=== PATIENT | male | born 1940 | race Hispanic/Latino ===

== ENCOUNTER → 2017-06-28 | Day surgery (SDC) | payer OTHER, MEDICARE ==
[2017-06-26 13:10] LABS: BASOPHILS # (AUTO) 0.1 (0.0-0.1); BASOPHILS % 0.7 % (0.0-1.0); EOSINOPHILS % 0.2 % (0.0-6.0); HEMATOCRIT 49.7 % (38.2-49.6); HEMOGLOBIN 16.8 g/dL (14.0-18.0); LYMPHOCYTES # (AUTO) 0.9 (1.0-3.2); MEAN CORPUSCULAR HEMOGLOBIN 31.6 pg (28-32); MEAN CORPUSCULAR HGB CONC 33.8 g/dL (31-35); MEAN CORPUSCULAR VOLUME 93.4 fL (81-99); MONOCYTES # (AUTO) 0.5 (0.2-0.8); MONOCYTES % 4.4 % (4.4-11.3); NEUTROPHILS # (AUTO) 10.5 (2.1-6.9); NEUTROPHILS % 86.7 % (38.7-80.0); PLATELET COUNT 266 x10e3/uL (140-360); RED BLOOD COUNT 5.32 x10e6/uL (4.3-5.7); RED CELL DISTRIBUTION WIDTH 13.6 % (11.7-14.4)
--- NOTE | 2017-06-26 13:27 | Diagnostic Imaging Report ---
PROCEDURE: X-RAY CHEST, TWO VIEWS COMPARISON: 10/23/2015. INDICATIONS: PREOP - LEFT FOOT SX FINDINGS: The lungs remain well inflated. No focal consolidation, pleural effusion, or pneumothorax. Minimal linear opacity in the lung bases compatible with subsegmental atelectasis. Stable cardiomediastinal contour with tortuosity and atherosclerotic calcification of the aortic arch. Normal heart size. No pulmonary edema. No acute osseous abnormality. Surgical clips project over the upper abdomen on lateral radiograph likely related to prior cholecystectomy. CONCLUSION: Bibasilar subsegmental atelectasis. Otherwise no acute cardiopulmonary abnormality. Dictated by: Art Diaz M.D. on 06/26/2017 at 13:35 Electronically approved by: Art Diaz M.D. on 06/26/2017 at 13:35
[2017-06-26 13:29] LABS: ANION GAP 13.4 mmol/L (8-16); BLOOD UREA NITROGEN 18 mg/dL (7-26); BUN/CREATININE RATIO 20 (6-25); CALCIUM 9.4 mg/dL (8.4-10.2); CARBON DIOXIDE 26 mmol/L (22-29); CHLORIDE 106 mmol/L (98-107); CREATININE, SERUM 0.88 mg/dL (0.72-1.25); EST GLOMERULAR FILTRATION RATE > 60 ML/MIN (60-); GLUCOSE 115 mg/dL (74-118); POTASSIUM 4.4 mmol/L (3.5-5.1); SODIUM 141 mmol/L (136-145)
[~2017-06-28] MED LIST: ARICEPT5 MG PO; ATORVASTATIN CA10 MG PO; BETAMETHASONE DISODIUM PHOS 6 MG/ML VIAL ONE; BUPIVACAINE HCL 0.5% INJ 30 ML VIAL INJ ONE; CEFAZOLIN SOD 1 GM/NS 50ML 50 ML IV ONE; CITALOPRAM HBR20 MG PO; CYANOCOBAL1000 MCG/M IV; DEXAMETHASONE SOD PHOS INJ 4 MG/ML VIAL ONE; DIPHENHYDRAMINE HCL INJ 1 ML ONE; FENTANYL CITRATE/PF 100MCG/2 ML INJ ONE; GABAPENTIN100 MG PO; HYDROCHLOROTHIA25 MG PO; HYDROMORPHONE 2MG/ML INJ ONE; HYDROXYCHLOROQ200 MG PO; LABETALOL HCL 5MG/ML MDV 20 ML ONE; LIDOCAINE HCL 2% LOCAL INJ 5 ML SDV VIAL INJ ONE; LISINOPRIL10 MG PO; MELOXICAM7.5 MG PO; METOPROLOL TART25 MG PO; ONDANSETRON HCL INJ 2 MG/ML VIAL ONE; PANTOPRAZOLE SO40 MG PO; PLAVIX PO; PROBIOTIC & AC1 EACH PO; PROPOFOL IV EMULSION 10 MG/ML 20 ML VIAL ONE; SEVOFLURANE INHAL SOLN 250 ML PEN BTL ONE
--- NOTE | 2017-06-28 10:07 | Diagnostic Imaging Report ---
PROCEDURE:FOOT LEFT AP \T\ LAT TECHNIQUE:AP and lateral views left foot INDICATION:Postoperative evaluation COMPARISON:None. FINDINGS: See conclusion. CONCLUSION: 1. Expected immediate postoperative sequela of great toe bunionectomy and hallux valgus correction. 2. Expected postoperative sequela of K wire fixation of second toe hammertoe correction. 3. No acute abnormality. Dictated by: Cody Phipps M.D. on 06/28/2017 at 10:15 Electronically approved by: Cody Phipps M.D. on 06/28/2017 at 10:15
--- NOTE | 2017-06-28 11:47 | Operative Report ---
DATE OF PROCEDURE: June 28, 2017 PREOPERATIVE DIAGNOSES 1. Painful hallux valgus deformity, left foot. 2. Painful contracted hammertoe, 2nd toe left. 3. Painful plantar fasciitis, left foot #4, #5, and #6. 4. Neuralgia/tarsal tunnel syndrome of tibial nerve, medial plantar nerve, and lateral plantar nerve, left foot. 5. Intraoperative use of fluoroscopy. 6. Trigger point shot of cortisone. 7. Application of posterior splint. ANESTHESIA: General. HEMOSTASIS: Pneumatic thigh tourniquet at 350 mmHg. PROCEDURE IN DETAIL: Patient was taken into the operating room, placed on the operating room table in the supine position. Following induction of general anesthesia by the anesthesiologist, Webril wraps were placed on the patient's left thigh followed by application of left thigh tourniquet. The left lower extremity was then prepped and draped in the usual aseptic manner and the following procedures were then performed: PROCEDURE #1: Nasim bunionectomy with screw fixation, left foot. Attention was directed to the dorsomedial aspect of the 1st MPJ where a 6 cm linear incision was performed. Incision was deepened down to the joint capsule. A longitudinal capsulotomy was then performed, exposing the dorsomedial exostosis to the 1st metatarsal head. Via use of an oscillating saw, dorsomedial exostosis was excised from the operation site in toto. A V-osteotomy was then performed from medial to lateral. Capital fragment was then transpositioned laterally. Upon adequate surgical and anatomical reduction, utilizing proper AO technique, a 2.0 x 16 mm cortical screw in conjunction with a buried 0.045 K-wire was used to achieve stability of the osteotomy site. All redundant bone medially was excised via the use of an oscillating saw and rotating mckayla. PROCEDURE #2: Arthroplasty 2nd toe, left foot. Attention was then directed to the dorsal aspect of the 2nd toe where a 3 cm linear incision was performed. Incision was deepened down to the joint capsule. Transverse capsulotomy was then performed, exposing the head of the proximal phalanx which was noted to be arthritic in conjunction with the base of the middle phalanx of the 2nd toe, left foot. Utilizing an oscillating saw, the head of the proximal phalanx was then excised from the operation site in toto. Toe was still noted to be contracted, so a 0.045 K-wire was introduced up to the metatarsophalangeal joint to achieve proper anatomical reduction. PROCEDURE #3: Endoscopic plantar fasciotomy, left foot. Attention was then directed to the medial aspect of the left heel where a stab incision was performed 2 cm from the plantar aspect and 5 cm from the posterior aspect of the left heel. The incision was then deepened via blunt dissection via a curved hemostat. A lateral stab incision was then performed. A cannula was introduced from medial to lateral. Camera was introduced through the lateral portal and the plantar fascia was then clearly visualized. The medial one-third of the plantar fascia was then resected, that way releasing the contracture of the plantar fascia until muscle was observed dorsal to the plantar fascia. Intraoperative pictures were taken of the above-mentioned procedure. PROCEDURE #4, #5, AND #6: Neurolysis of the tibial nerve, neurolysis medial plantar nerve, and neurolysis lateral plantar nerve. Attention was then directed to the medial aspect of the left talotibial joint where a curvilinear incision was performed posterior to the medial malleolus. Incision was deepened via sharp and blunt dissection, being careful to retract any vital structures and ligating any superficial vessels as necessary. Once the level of the flexor retinaculum was clearly visualized, utilizing meticulous dissection the flexor retinaculum was cut, exposing the tibial nerve. The tibial nerve was then released from its adhesions via blunt dissection. The incision was then carried down to the preeti pedis and the nerve was then carried down to the medial and lateral plantar nerve branches and the medial and lateral plantar nerves were then dissected free from any adhesions via blunt dissection. All areas were then copiously flushed with sterile saline solution and suctioned. PROCEDURE #7: Intraoperative use of fluoroscopy was then used to make sure proper alignment fixation was achieved. Closure was then obtained utilizing 3-0 Vicryl, 4-0 Vicryl, and 4-0 nylon for capsule, subcutaneous tissue, and skin respectively. PROCEDURE #8: Trigger point shot of cortisone was then given to the 1st interspace of the left foot, medial aspect of the left heel, and tarsal canal area of the left lower extremity. Then, approximately 15 mL of 0.5% plain Marcaine were then used to achieve local anesthesia of above mentioned surgical area. A sterile dressing was applied. Upon release of the thigh tourniquet, blood hyperemia was noted immediately to all digits of the patient's left foot. PROCEDURE #9: Application of posterior splint. A properly placed posterior splint was then applied keeping the foot at 90 degrees with respect to the leg to try to prevent any type of postoperative complications. Patient was then transferred from the OR to recovery room with vital signs stable and neurovascular status intact. No intraoperative complications were encountered. Blood loss from the surgery was minimal. Patient is to remain nonweightbearing with the aid of crutches, keep his foot elevated, and is to apply an ice pack to the ankle joint area. Job#: [id number] ANNMARIE
== END | disposition home or self-care (01) ==
LOC: OR 05:59
PROVIDERS: ATTEND Podiatrist Foot Surgery
DX: M20.12 Hallux valgus (acquired), left foot (principal); M20.42 Other hammer toe(s) (acquired), left foot; M72.2 Plantar fascial fibromatosis; G57.52 Tarsal tunnel syndrome, left lower limb; G58.8 Other specified mononeuropathies; I10 Essential (primary) hypertension; I25.10 Atherosclerotic heart disease of native coronary artery without angina pectoris; Z01.810 Encounter for preprocedural cardiovascular examination; Z01.812 Encounter for preprocedural laboratory examination; Z01.818 Encounter for other preprocedural examination; Z95.5 Presence of coronary angioplasty implant and graft
CPT/HCPCS: 28035; 28285; 28296; 29893; 36415; 64704 ×2; 71020; 73620; 80048; 85025; 93005; C1713; J0720; J1100; J1170; J1200; J2001; J2405; J3490

== ENCOUNTER 2019-12-12 17:56 | Inpatient (IN) | payer MEDICARE, OTHER ==
[~2019-12-12] VITALS: Ht 167.6 cm; Wt 76.2 kg
[~2019-12-12 17:56] MED LIST changes: -BETAMETHASONE DISODIUM PHOS 6 MG/ML VIAL ONE; -BUPIVACAINE HCL 0.5% INJ 30 ML VIAL INJ ONE; -CEFAZOLIN SOD 1 GM/NS 50ML 50 ML IV ONE; -DEXAMETHASONE SOD PHOS INJ 4 MG/ML VIAL ONE; -DIPHENHYDRAMINE HCL INJ 1 ML ONE; -FENTANYL CITRATE/PF 100MCG/2 ML INJ ONE; -HYDROMORPHONE 2MG/ML INJ ONE; -LABETALOL HCL 5MG/ML MDV 20 ML ONE; -LIDOCAINE HCL 2% LOCAL INJ 5 ML SDV VIAL INJ ONE; -ONDANSETRON HCL INJ 2 MG/ML VIAL ONE; -PROPOFOL IV EMULSION 10 MG/ML 20 ML VIAL ONE; -SEVOFLURANE INHAL SOLN 250 ML PEN BTL ONE
--- OUTSIDE RECORDS SUMMARY | 2019-12-12 18:01 | XMS REPORT ---
Author Author Iliana NELLA A Organization Unknown Address Unknown Phone Care Team Providers Care Yard Cleaner Name Role Phone Daphney Barrientos PP Reason for Referral No Reason for Referral was given. History of Present Illness No HPI available. Problems * Normal Routine History And Physical Senior Citizen (65-80) (V70.0); ( Active) Medication * Protonix 40 MG Oral Packet (Active) * Plavix 75 MG Oral Tablet (Active) * Lisinopril 10 MG Oral Tablet (Active) * Lipitor 10 MG Oral Tablet (Active) * Meloxicam 15 MG Oral Tablet (Active) * Hydroxychloroquine Sulfate 200 MG Oral Tablet (Active) * Furosemide 20 MG Oral Tablet (Active) * Esgic CAPS (Active) * Famotidine TABS (Active) * Folic Acid TABS (Active) * Multi Vitamin/Minerals Oral Tablet (Active) * MTX Support Oral Tablet; 2.5mg 4 po q Monday (Active) Allergies and Adverse Reactions * No Known Drug Allergies (Active) Past Medical History * History of Hypertension (401.9); (Resolved) * History of Coronary Artery Disease (V12.59); (Resolved) * History of Prostate Cancer (V10.46); (Resolved) * History of Hematuria Comments: microscopic (599.70); (Resolved) * History of Rheumatoid Arthritis (714.0); (Resolved) Immunization * Influenza * PPD * Pneumo Advance Directives * No Advance Directives available. Encounters * AUDIT 04/05/2013 * LEANDRO, Provider: LULU WOOD, Status: Basim, Time: 1:15 PM 04/10/2013
--- OUTSIDE RECORDS SUMMARY | 2019-12-12 18:01 | XMS REPORT ---
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 Active Assessment 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 rheumatoid factor, multiple sites M06.09 Active Assessment Fatigue R53.83 Active Assessment Pain in right shoulder M25.511 Activ e Problem Shoulder pain, left M25.512 Active Problem Osteopenia M85.80 Active Problem Pain in right shoulder M25.511 Activ e Problem 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 Problem 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 rheumatoid factor, multip le sites M06.09 Active Problem Fatigue R53.83 Active Problem Back pain M54.9 Active Medications Medication Code System Code Instructions Start Date End Date Status Dosage Lisinopril ND 37415234501 10 MG Orally Once a day A ctive 1 tablet Protonix ND 22188065639 40 MG Orally Once a day Act viky 1 tablet Cyanocobalamin [facility] [address]-49 1000 MCG/ML Orally once a week Active as directed Metoprolol Tartrate ND 66103534529 25 MG Orally Twice a day Active 1 tablet with food Plavix ND 50400925790 75 MG Orally Once a day Acti ve 1 tablet Pravastatin Sodium ND 18098346780 40 MG Orally Once a day Active 1 tablet Hydroxychloroquine Sulfate ND 44973612822 200 MG Orally bid Active 1 tablet with food or milk PredniSONE ND 35288298837 5 MG Orally Once a day December 25, 2018 Active 1 tablet Hydrochlorothiazide ND 87907855127 25 MG Orally Three times a Week Active 1 tablet in the morning Vitamin D (Ergocalciferol) ND 65131318860 32472 UNIT Orally onc e a week Active 1 capsule Donepezil Hydrochloride [facility] 38696133583 10 MG Orally Once a day Active 1 tablet at bedtime Vital Signs Date/Time: December 25, 2018 BMI 30 Index Weight 171.1 lbs Height 63 in Temperature 98.2 F Cardiac Monitoring Heart Rate 84 /min Blood Pressure Diastolic 62 mm Hg Blood Pressure Systolic 98 mm Hg Results No Known Results Summary Purpose eClinicalWorks Submission
--- OUTSIDE RECORDS SUMMARY | 2019-12-12 18:01 | XMS REPORT ---
Author Author NELLA Luna Organization e[employer] Address Unknown Phone Unavailable Care Team Providers Care Bakery Helper Name Role Phone Kevin Luna CP Unavailable Allergies, Adverse Reactions, Alerts Substance Reaction Event Type Sulfasalazine Info Not Available Drug Allergy Hydroxychloroquine Sulfate worked but too expensive Drug All ergy Problems Problem Type Condition Code Onset Dates Condition Statu s Assessment 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 rheumatoid factor, multiple sites M06.09 Active Problem Other frame aligner (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 Z79.899 Active Assessment Other skilled nursing (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 Z79.899 Active Problem Shoulder pain, left M25.512 Active Problem Osteopenia M85.80 Active Problem Left shoulder pain M25.512 Active Problem 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 Problem 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 rheumatoid factor, multip le sites M06.09 Active Problem Fatigue R53.83 Active Problem Back pain M54.9 Active Medications Medication Code System Code Instructions Start Date End Date Status Dosage Cyanocobalamin [facility] [address]-30 1000 MCG/ML Orally once a week Active as directed Hydrochlorothiazide ND 84429731873 25 MG Orally Three times a Week Active 1 tablet in the morning Lisinopril ND 79202635490 10 MG Orally Once a day A ctive 1 tablet Plavix ND 22496491349 75 MG Orally Once a day Acti ve 1 tablet Metoprolol Tartrate ND 45646695952 25 MG Orally Twice a day Active 1 tablet with food Vitamin D (Ergocalciferol) ND 50977314530 19791 UNIT Orally onc e a week Active 1 capsule Protonix ND 46969357863 40 MG Orally Once a day Act viky 1 tablet Hydroxychloroquine Sulfate ND 57105867283 200 MG Orally bid Active 1 tablet with food or milk PredniSONE ND 04833515535 5 MG Orally Once a day Ac tive 1 tablet Pravastatin Sodium ND 90230845496 40 MG Orally Once a day Active 1 tablet Donepezil Hydrochloride [facility] 89292355584 10 MG Orally Once a day Active 1 tablet at bedtime Vital Signs Date/Time: September 24, 2018 BMI 29.99 Index Weight 169.3 lbs Height 63 in Temperature 97.9 F Cardiac Monitoring Heart Rate 80 /min Blood Pressure Diastolic 78 mm Hg Blood Pressure Systolic 118 mm Hg Results No Known Results Summary Purpose eClinicalWorks Submission
--- OUTSIDE RECORDS SUMMARY | 2019-12-12 18:01 | XMS REPORT | Summary of Care ---
Author Author [facility] Address Unknown Phone Unavailable Encounter HQ Encntr_marrymary([facility]) [id number] Date(s): 12/02/16 - 12/31/16 [facility] Final: Limitation of activities due to disability Final: Stiffness of unspecified joint, not elsewhere classified Discharge Disposition: Home or Self Care Attending Physician: Ismael Munoz MD Vital Signs No data available for this section Problem List No data available for this section Allergies, Adverse Reactions, Alerts No data available for this section Medications No data available for this section Results No data available for this section Immunizations No data available for this section Procedures No data available for this section Social History No data available for this section Assessment and Plan No data available for this section
--- OUTSIDE RECORDS SUMMARY | 2019-12-12 18:01 | XMS REPORT | Summary of Care ---
Author Author [facility] Outpatient Imaging - [facility] Organization [facility] Outpatient Imaging [facility] Address Unknown Phone Unavailable Encounter HQ Encntr_alias(FIN) [id number] Date(s): 08/06/19 - 08/06/19 [facility] Outpatient Imaging [facility] [address] [facility], [address] [place], [place] [address] [phone] Discharge Disposition: Home or Self Care Attending Physician: Ismael Munoz MD Referring Physician: Ismael Munoz MD Vital Signs No [...]
--- OUTSIDE RECORDS SUMMARY | 2019-12-12 18:01 | XMS REPORT ---
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
--- OUTSIDE RECORDS SUMMARY | 2019-12-12 18:01 | XMS REPORT ---
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 Active Assessment Left shoulder pain M25.512 Active Problem Shoulder pain, left M25.512 Active Problem Osteopenia M85.80 Active Problem Left shoulder pain M25.512 Active Problem 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 Problem 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 rheumatoid factor, multip le sites M06.09 Active Problem Fatigue R53.83 Active Problem Back pain M54.9 Active Medications Medication Code System Code Instructions Start Date End Date Status Dosage Donepezil Hydrochloride ND 23831607824 10 MG Orally Once a day Active 1 tablet at bedtime Hydrochlorothiazide ND 42801831849 25 MG Orally Three times a Week Active 1 tablet in the morning Protonix ND 89767594863 40 MG Orally Once a day Act viky 1 tablet PredniSONE ND 18317371264 5 MG Orally q0d x 4wks and t hen 1 tab prn Jun 05, 2018 Active 1 tablet Vitamin D (Ergocalciferol) ND 93499367166 37922 UNIT Orally onc e a week Active 1 capsule Cyanocobalamin [facility] [address]-96 1000 MCG/ML Orally once a week Active as directed Plavix ND 47281051826 75 MG Orally Once a day Acti ve 1 tablet Lisinopril ND 48926663675 10 MG Orally Once a day A ctive 1 tablet Hydroxychloroquine Sulfate ND 51855872670 200 MG Orally bid N 2017September 21, 2018 Active 1 tablet with food or milk Pravastatin Sodium ND 15749959843 40 MG Orally Once a day Active 1 tablet Metoprolol Tartrate [facility] 64285355656 25 MG Orally Twice a day Active 1 tablet with food Vital Signs Date/Time: Jun 08, 2018 BMI 30.59 Index Weight 172.7 lbs Height 63 in Temperature 97.6 F Cardiac Monitoring Heart Rate 70 /min Blood Pressure Diastolic 68 mm Hg Blood Pressure Systolic 122 mm Hg Results No Known Results Summary Purpose eClinicalWorks Submission
--- OUTSIDE RECORDS SUMMARY | 2019-12-12 18:01 | XMS REPORT | Summary of Care ---
Author Author [facility] Outpatient Imaging - [facility] Outpatient Imaging - [facility] Address Unknown Phone Unavailable Encounter HQ Encntr_alias(FIN) [id number] Date(s): 02/27/15 - 02/27/15 [facility] Outpatient Imaging - [place] [address] [facility], [address] [phone] Discharge Disposition: Home Attending Physician: Ismael Munoz MD Vital Signs [...]
--- OUTSIDE RECORDS SUMMARY | 2019-12-12 18:01 | XMS REPORT ---
Author Author NELLA Pro Organization eClinicalWorks Address Unknown Phone Unavailable Care Team Providers Care Remelt Pan Tank Operator Name Role Phone Watson Pro CP Unavailable Allergies, Adverse Reactions, Alerts Substance Reaction Event Type Sulfasalazine Info Not Available Drug Allergy Hydroxychloroquine Sulfate worked but too expensive Drug All ergy Problems Problem Type Condition Code Onset Dates Condition Statu s Problem 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 rheumatoid factor, multip le sites M06.09 Active Problem Other [facility] (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 Z79.899 Active Problem Pain in right shoulder M25.511 Activ e Problem Shoulder pain, left M25.512 Active Problem Low vitamin D level E55.9 Active Problem Back pain M54.9 Active Problem 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 Problem Osteopenia M85.80 Active Problem Fatigue R53.83 Active Assessment 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 Assessment Low vitamin D level E55.9 Active Assessment Pain in right shoulder M25.511 Activ e Assessment Osteopenia M85.80 Active Assessment 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 rheumatoid factor, multiple sites M06.09 Active Medications Medication Code System Code Instructions Start Date End Date Status Dosage Pravastatin Sodium ND 39943257355 40 MG Orally Once a day Active 1 tablet Protonix ND 99492441570 40 MG Orally Once a day Act viky 1 tablet Plavix ND 64708318878 75 MG Orally Once a day Acti ve 1 tablet Hydrochlorothiazide ND 49320448606 25 MG Orally Three times a Week Active 1 tablet in the morning Metoprolol Tartrate ND 46625781811 25 MG Orally Twice a day Active 1 tablet with food Hydroxychloroquine Sulfate ND 35233180063 200 MG Orally bid Active 1 tablet with food or milk PredniSONE ND 18979915893 5 MG Orally Once a day December 25, 2018 Active 1 tablet Lisinopril ND 93739358099 10 MG Orally Once a day A ctive 1 tablet Donepezil Hydrochloride ND 97842103531 10 MG Orally Once a day Active 1 tablet at bedtime Vital Signs Date/Time: Mar 29, 2019 BMI 30.61 Index Weight 172.8 lbs Height 63 in Temperature 98.0 F Cardiac Monitoring Heart Rate 68 /min Blood Pressure Diastolic 60 mm Hg Blood Pressure Systolic 108 mm Hg Results Name Result Date Reference Range Unit Abnormali ty Flag CBC W/AUTO DIFF ----MONOCYTES 5.9 [id number] 4.0-13.0 % ----LYMPHOCYTES 12.5 [id number] 19.0-48.0 % L ----HEMOGLOBIN 17.0 [id number] 13.0-17.0 G/DL ----HEMATOCRIT 50.8 12359503 37.0-49.0 % H ----MCV 92.7 04727715 80.0-100.0 fL ----MCH 31.0 [id number] 27.0-34.0 PG ----MCHC 33.5 [id number] 32.0-35.5 G/DL ----PLATELET COUNT 283 90020050 130-400 K/UL ----RDW 13.9 [id number] 11.0-15.0 % ----BASOPHILS 0.7 77222088 0.0-2.0 % ----WBC 12.5 [id number] 4.0-11.0 K/UL H ----NEUTROPHILS 79.9 52546134 40.0-74.0 % H ----RBC 5.48 [id number] 4.10-5.70 M/UL ----EOSINOPHILS 1.0 55196725 0.0-7.0 % C-REACTIVE PROTEIN ----C-REACTIVE PROTEIN <0.1 [id number] <0.5 MG/DL COMPREHENSIVE METABOLIC PANEL ----CALC A/G RATIO 2.0 [id number] 1.0-2.6 RATIO ----CALC GLOBULIN 2.4 12418739 1.9-3.7 G/DL ----ALKALINE PHOSPHATASE 61 43105550 40-125 U/L ----BILIRUBIN, TOTAL 0.6 65354681 <=1.2 MG/DL ----CHLORIDE 100 [id number] 95-107 MEQ/L ----ALT 17 59772611 5-50 U/L ----POTASSIUM 4.2 88477031 3.5-5.4 MEQ/L ----AST 18 20190329 9-50 U/L ----SODIUM 141 20190329 133-146 MEQ/L ----CALC BUN/CREAT 16 20190329 6-28 RATIO ---- eGFR NON- AMER. 73 [id number] >60 ML/MIN/1 .73 ----CALCIUM 10.1 [id number] 8.5-10.5 MG/DL ----CARBON DIOXIDE 28 20190329 19-31 MEQ/L ----ALBUMIN 4.7 20190329 3.5-5.2 G/DL ----PROTEIN, TOTAL 7.1 20190329 6.1-8.3 G/DL ----GLUCOSE 101 20190329 70-99 MG/DL H ----BUN 16 20190329 8-23 MG/DL ----CREATININE 0.98 20190329 0.80-1.40 MG/DL ---- eGFR AMER. 84 [id number] >60 ML/MIN/1.73 SEDIMENTATION RATE ----SEDIMENTATION RATE 8 [id number] 0-15 MM/HOUR VITAMIN D, 25 OH ----VITAMIN D, 25 OH 25 [id number] SEE BELOW NG/ML L Summary Purpose eClinicalWorks Submission
--- OUTSIDE RECORDS SUMMARY | 2019-12-12 18:01 | XMS REPORT ---
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 Active Problem Abnormal electrocardiogram R94.31 A ctive Problem Arteriosclerosis of both carotid arteries I65.23 Active Problem Nonrheumatic mitral (valve) insufficiency I34.0 Active Problem 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 Problem LVH (left ventricular hypertrophy) due to hypertensive disease I11.9 Active Problem Essential hypertension I10 Activ e Problem Abnormal stress test R94.39 Active Assessment Essential hypertension I10 Activ e Problem Stented coronary artery Z95.5 Acti ve Problem Former smoker Z87.891 Active Problem Pure hypercholesterolemia E78.01 Ac tive Problem CAD (coronary artery disease) I25.10 Active Problem 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
--- OUTSIDE RECORDS SUMMARY | 2019-12-12 18:01 | XMS REPORT ---
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
--- OUTSIDE RECORDS SUMMARY | 2019-12-12 18:01 | XMS REPORT | Summary of Care ---
Author Author [facility] Outpatient Imaging - [facility] Outpatient Imaging - [facility] Address Unknown Phone Unavailable Encounter HQ Encntr_alias(FIN) [id number] Date(s): 09/07/15 - 09/07/15 [facility] Outpatient Imaging - [place] [address] [facility], [address] [phone] Discharge Disposition: Home Attending Physician: Ismael Munoz [...]
--- OUTSIDE RECORDS SUMMARY | 2019-12-12 18:01 | XMS REPORT ---
Author Author NELLA Luna Organization [employer] Address Unknown Phone Unavailable Care Team Providers Care Junior Marketing Associate Name Role Phone Kevin Luna CP Unavailable Allergies, Adverse Reactions, Alerts Substance Reaction Event Type Sulfasalazine Info Not Available Drug Allergy Hydroxychloroquine Sulfate worked but too expensive Drug All ergy Problems Problem Type Condition Code Onset Dates Condition Statu s Assessment Shoulder pain, left M25.512 Active Assessment 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 rheumatoid factor, multiple sites M06.09 Active Problem Osteopenia M85.80 Active Problem Fatigue R53.83 Active Problem Shoulder pain, left M25.512 Active Problem 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 rheumatoid factor, multip le sites M06.09 Active Problem 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 service 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 (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 Z79.899 Active Problem Back pain M54.9 Active Problem 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 Medications Medication Code System Code Instructions Start Date End Date Status Dosage Cyanocobalamin [facility] [address]-54 1000 MCG/ML Orally once a week Active as directed Plavix ND 61504405964 75 MG Orally Once a day Acti ve 1 tablet Protonix ND 12541242008 40 MG Orally Once a day Act viky 1 tablet Donepezil Hydrochloride ND 05291018170 10 MG Orally Once a day Active 1 tablet at bedtime Lisinopril ND 93423106872 10 MG Orally Once a day A ctive 1 tablet Metoprolol Tartrate ND 29507117809 25 MG Orally Twice a day Active 1 tablet with food Hydrochlorothiazide ND 21251149790 25 MG Orally Three times a Week Active 1 tablet in the morning Vitamin D (Ergocalciferol) ND 04391136842 67884 UNIT Orally onc e a week Active 1 capsule PredniSONE ND 72480444351 5 MG Orally Once a day Ac tive 1 tablet Hydroxychloroquine Sulfate ND 06237359647 200 MG Orally bid Active 1 tablet with food or milk Pravastatin Sodium ND 12991270334 40 MG Orally Once a day Active 1 tablet Vital Signs Date/Time: Feb 12, 2018 BMI 30.64 Index Weight 173 lbs Height 63 in Temperature 96.3 F Cardiac Monitoring Heart Rate 64 /min Blood Pressure Diastolic 82 mm Hg Blood Pressure Systolic 130 mm Hg Results No Known Results Summary Purpose eClinicalWorks Submission
--- OUTSIDE RECORDS SUMMARY | 2019-12-12 18:01 | XMS REPORT ---
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
--- OUTSIDE RECORDS SUMMARY | 2019-12-12 18:01 | XMS REPORT ---
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
--- OUTSIDE RECORDS SUMMARY | 2019-12-12 18:01 | XMS REPORT ---
Author Author NELLA Pro Organization [employer] Address Unknown Phone Unavailable Care Team Providers Care Label Printing Machinist Name Role Phone Watson Pro CP Unavailable Allergies No Known Allergies Problems Problem Type Condition Code Onset Dates Condition Statu s Problem Other rodent exterminator (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 Z79.899 Active Problem Shoulder [...]
--- OUTSIDE RECORDS SUMMARY | 2019-12-12 18:01 | XMS REPORT ---
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
--- OUTSIDE RECORDS SUMMARY | 2019-12-12 18:01 | XMS REPORT ---
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 Problem 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 rheumatoid factor, multip le sites M06.09 Active Problem Low vitamin D level E55.9 Active Problem Pain in right shoulder M25.511 Activ e Problem Rotator cuff tear, right M75.101 Act viky Problem Fatigue R53.83 Active Problem Back pain M54.9 Active Problem Shoulder pain, left M25.512 Active Problem Osteopenia M85.80 Active Assessment Pain in right shoulder M25.511 Activ e Assessment 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 (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 Z79.899 Active Assessment 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 Assessment 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 rheumatoid factor, multiple sites M06.09 Active Assessment Rotator cuff tear, right M75.101 Act viky Medications Medication Code System Code Instructions Start Date End Date Status Dosage Hydrochlorothiazide ND 61341408613 25 MG Orally Three times a Week Active 1 tablet in the morning Plavix ND 99462043218 75 MG Orally Once a day Acti ve 1 tablet Hydroxychloroquine Sulfate ND 11031374454 200 MG Orally bid Active 1 tablet with food or milk Metoprolol Tartrate ND 39399406526 25 MG Orally Twice a day Active 1 tablet with food Protonix ND 76368727195 40 MG Orally Once a day Act viky 1 tablet PredniSONE ND 82459725295 5 MG Orally Once a day December 25, 2018 Active 1 tablet Pravastatin Sodium ND 29202726247 40 MG Orally Once a day Active 1 tablet Lisinopril ND 04610175942 10 MG Orally Once a day A ctive 1 tablet Donepezil Hydrochloride ND 12843902108 10 MG Orally Once a day Active 1 tablet at bedtime Vital Signs Date/Time: May 16, 2019 BMI 30.20 Index Weight 170.5 lbs Height 63 in Temperature 98 F Cardiac Monitoring Heart Rate 76 /min Blood Pressure Diastolic 74 mm Hg Blood Pressure Systolic 112 mm Hg Results No Known Results Summary Purpose eClinicalWorks Submission
--- OUTSIDE RECORDS SUMMARY | 2019-12-12 18:01 | XMS REPORT ---
Author Author NELLA Pro Organization [employer] Address Unknown Phone Unavailable Care Team Providers Care Projection Printer Name Role Phone Watson Pro CP Unavailable Allergies No Known Allergies Problems Problem Type Condition Code Onset Dates Condition Statu s Problem Other intermission coordinator (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 Z79.899 Active Problem Shoulder [...]
--- OUTSIDE RECORDS SUMMARY | 2019-12-12 18:01 | XMS REPORT ---
Author Author NELLA Pro Organization [employer]Works Address Unknown Phone Unavailable Care Team Providers Care Radiation Oncology Nurse Name Role Phone Watson Pro CP Unavailable Allergies No Known Allergies Problems Problem Type Condition Code Onset Dates Condition Statu s Problem Other oil heaterman (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 Z79.899 Active Problem Shoulder [...]
--- OUTSIDE RECORDS SUMMARY | 2019-12-12 18:01 | XMS REPORT ---
Author Author NELLA Pro Organization eClinicalWorks Address Unknown Phone Unavailable Care Team Providers Care Sailing Master Name Role Phone Watson Pro CP Unavailable Allergies No Known Allergies Problems Problem Type Condition Code Onset Dates Condition Statu s Problem Other parts counterman (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 Z79.899 Active Problem Shoulder [...]
--- OUTSIDE RECORDS SUMMARY | 2019-12-12 18:01 | XMS REPORT ---
Author Author NELLA Luna Organization eClinicalWorks Address Unknown Phone Unavailable Care Team Providers Care Bulk Plant Supervisor Name Role Phone Kevin Luna CP Unavailable Allergies, Adverse Reactions, Alerts Substance Reaction Event Type Sulfasalazine Info Not Available Drug Allergy Hydroxychloroquine Sulfate worked but too expensive Drug All ergy Problems Problem Type Condition Code Onset Dates Condition Statu s Assessment 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 rheumatoid factor, multiple sites M06.09 Active Problem Other terminal superintendent (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 Z79.899 Active Assessment Shoulder pain, left M25.512 Active Problem Shoulder pain, left M25.512 Active Problem Osteopenia M85.80 Active Problem Left shoulder pain M25.512 Active Problem 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 Problem 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 rheumatoid factor, multip le sites M06.09 Active Problem Fatigue R53.83 Active Problem Back pain M54.9 Active Medications Medication Code System Code Instructions Start Date End Date Status Dosage Metoprolol Tartrate ND 64106350768 25 MG Orally Twice a day Active 1 tablet with food Pravastatin Sodium ND 71996458111 40 MG Orally Once a day Active 1 tablet Plavix ND 78436697384 75 MG Orally Once a day Acti ve 1 tablet Lisinopril ND 03435588580 10 MG Orally Once a day A ctive 1 tablet Hydrochlorothiazide ND 15957721172 25 MG Orally Three times a Week Active 1 tablet in the morning Cyanocobalamin [facility] [address]-68 1000 MCG/ML Orally once a week Active as directed Vitamin D (Ergocalciferol) ND 04272137550 93735 UNIT Orally onc e a week Active 1 capsule Donepezil Hydrochloride ND 99104358377 10 MG Orally Once a day Active 1 tablet at bedtime Protonix ND 33695884049 40 MG Orally Once a day Act viky 1 tablet PredniSONE ND 40544388123 5 MG Orally Once a day Ac tive 1 tablet Hydroxychloroquine Sulfate ND 30118960153 200 MG Orally bid Active 1 tablet with food or milk Vital Signs Date/Time: Jun 26, 2018 BMI 31 Index Weight 174.3 lbs Height 63 in Temperature 96.1 F Cardiac Monitoring Heart Rate 64 /min Blood Pressure Diastolic 86 mm Hg Blood Pressure Systolic 132 mm Hg Results No Known Results Summary Purpose eClinicalWorks Submission
--- OUTSIDE RECORDS SUMMARY | 2019-12-12 18:01 | XMS REPORT ---
Author Author NELLA WOOD Organization Unknown Address Unknown Phone Care Team Providers Care Aquatic Life Laborer Name Role Phone LULU WOOD PP Unavailable Reason for Referral No Reason for Referral was given. History of Present Illness No HPI available. Problems * Normal Routine History And Physical Senior Citizen (65-80) (V70.0); ( Active) * Alzheimer Disease (331.0); (Active) * Coronary Artery Stenosis (414.00); (Active) * Essential Hypertension (401.9); (Active) * Prostate Cancer (185); (Active) * Rheumatoid Arthritis (714.0); (Active) Medication * Plavix 75 MG Oral Tablet; TAKE 1 TABLET DAILY. (Active) * Lisinopril 10 MG Oral Tablet; TAKE 1 TABLET DAILY. (Active) * Lipitor 10 MG Oral Tablet; TAKE 1 TABLET DAILY. (Active) * Meloxicam 15 MG Oral Tablet; TAKE 1 TABLET DAILY. (Active) * Hydroxychloroquine Sulfate 200 MG Oral Tablet; TAKE 1 TABLET DAILY. (Active) * MTX Support Oral Tablet; 2.5mg 4 po q Monday (Active) * Protonix 40 MG Oral Tablet Delayed Release; TAKE 1 TABLET DAILY. (Active) * Furosemide 20 MG Oral Tablet; TAKE 1 TABLET DAILY. (Active) Allergies and Adverse Reactions * No Known Drug Allergies (Active) Past Medical History * History of Hypertension (401.9); (Resolved) * History of Coronary Artery Disease (V12.59); (Resolved) * History of Prostate Cancer (V10.46); (Resolved) * History of Hematuria Comments: microscopic (599.70); (Resolved) * History of Rheumatoid Arthritis (714.0); (Resolved) Immunization * Influenza * PPD * Pneumo Family History * Paternal history of Lung Cancer (V16.1); (Active) * Maternal history of Alzheimer Disease (Active) Social History * Marital History - Currently (Active) * Never A Smoker (Active) Advance Directives * No Advance Directives available. Encounters * AUDIT 08/07/2013 * [facility], Provider: LULU WOOD, Status: Basim, Time: 1:15 PM 12/03/2013
--- OUTSIDE RECORDS SUMMARY | 2019-12-12 18:01 | XMS REPORT ---
Author Author NELLA Luna Organization eClinicalWorks Address Unknown Phone Unavailable Care Team Providers Care Heeler Machine Name Role Phone Kevin Luna CP Unavailable Allergies, Adverse Reactions, Alerts Substance Reaction Event Type Sulfasalazine Info Not Available Drug Allergy Hydroxychloroquine Sulfate worked but too expensive Drug All ergy Problems Problem Type Condition Code Onset Dates Condition Statu s Assessment Other tank terminal gauger (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 Z79.899 Active Problem Fatigue R53.83 Active Problem Back pain M54.9 Active Problem Osteopenia M85.80 Active Problem Other skilled nursing (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 Z79.899 Active Assessment 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 rheumatoid factor, multiple sites M06.09 Active Problem 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 Problem 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 rheumatoid factor, multip le sites M06.09 Active Medications Medication Code System Code Instructions Start Date End Date Status Dosage Cyanocobalamin [facility] [address]-43 1000 MCG/ML Orally once a week Active as directed Leflunomide ND 95610011170 20 MG Orally Once a day Active 1 tablet Hydroxychloroquine Sulfate ND 06718630089 200 MG Orally bid Feb 07, 2018 Active 1 tablet with food or milk Lisinopril ND 26055760352 10 MG Orally Once a day A ctive 1 tablet Pravastatin Sodium ND 43887269119 40 MG Orally Once a day Active 1 tablet Donepezil Hydrochloride ND 18325836967 10 MG Orally Once a day Active 1 tablet at bedtime Hydrochlorothiazide ND 94801668512 25 MG Orally Three times a Week Active 1 tablet in the morning Protonix ND 91385676361 40 MG Orally Once a day Act viky 1 tablet PredniSONE ND 21837104321 5 MG Orally Once a day Ac tive 1 tablet Plavix ND 58660880955 75 MG Orally Once a day Acti ve 1 tablet Metoprolol Tartrate ND 83036064084 25 MG Orally Twice a day Active 1 tablet with food Vitamin D (Ergocalciferol) [facility] 55648436916 86160 UNIT Orally onc e a week Active 1 capsule Vital Signs Date/Time: Feb 07, 2018 BMI 30.61 Index Weight 175.6 lbs Height 63.5 in Temperature 98.1 F Cardiac Monitoring Heart Rate 72 /min Blood Pressure Diastolic 80 mm Hg Blood Pressure Systolic 142 mm Hg Results No Known Results Summary Purpose eClinicalWorks Submission
--- OUTSIDE RECORDS SUMMARY | 2019-12-12 18:01 | XMS REPORT ---
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
--- OUTSIDE RECORDS SUMMARY | 2019-12-12 18:01 | XMS REPORT ---
Author Author NELLA Pro Organization eClinicalWorks Address Unknown Phone Unavailable Care Team Providers Care Chemical Technician Name Role Phone Watson Pro CP Unavailable Allergies No Known Allergies Problems Problem Type Condition Code Onset Dates Condition Statu s Problem Other oysterman (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 Z79.899 Active Problem Shoulder [...]
--- OUTSIDE RECORDS SUMMARY | 2019-12-12 18:01 | XMS REPORT | Continuity of Care Document ---
Author Author Ewa Sung [employer] NELLA Muhammad [employer] Address Unknown Phone Unavailable Care Team Providers Care Mapping Analyst Name Role Phone [employer] Unavailable Un available Problems Problem Status Onset Date Classification Date Reported Comments Source LBP W/SCIATICA Active 11/17/2016 [facility] [place] M79.671 - PAIN IN RIGHT FOOT A ctive 09/04/2015 [employer] 562.11 - DIVERTICULITIS Active 02/25/2015 [employer] Limitation of activities due to disability 01/03/2017 [facility] [place] Stiffness of unspecified joint, not else where classified 01/03/2017 [facility] [place] Osteopenia Active Problem 08/22/2019 [facility] Fatigue Active Problem 08/22/2019 [facility] Shoulder pain, left Active Problem 08/22/2019 Esteban Hardiner 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 rheumatoid factor, multiple sites Active Prob lien 08/22/2019 [facility] 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 [facility] Back pain Active Problem 08/22/2019 Esteban Hardiner Inflammatory osteoarthritis Ac tive Problem Esteban Hardiner Left shoulder pain Active Problem 09/27/2018 [facility] Low vitamin D level Active Problem 08/22/2019 [facility] Pain in right shoulder Active Problem 08/22/2019 Esteban Hardiner Rotator cuff tear, right Active Problem 08/22/2019 Esteb[facility] Hardiner Leg edema, left Active Problem 03/27/2019 Aranza Nicholas Right arm numbness Active Problem 03/27/2019 Aranza Nicholas Exertional dyspnea Active Problem 03/27/2019 Aranza Nicholas Encounter for pre-operative cardiovascular clearance Active Problem 03/27/2019 Aranza Nicholas 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 Problem 03/27/2019 Aranza Nicholas Abnormal electrocardiogram Act viky Problem Aranza Nicholas Arteriosclerosis of both carotid arteries Active Problem 03/27/2019 rAanza Nicholas Nonrheumatic mitral (valve) insufficiency Active Problem 03/27/2019 Aranza Nicholas Nonrheumatic tricuspid valve disorder Active Problem Aranza Nicholas LVH (left ventricular hypertrophy) due t o hypertensive disease Active Prob lien 03/27/2019 Aranza Nicholas Essential hypertension Active Problem 03/27/2019 Aranza Nicholas Abnormal stress test Active Problem 03/27/2019 Aranza Nicholas Stented coronary artery Active Problem 03/27/2019 Aranza Nicholas Former smoker Active Problem 03/27/2019 Aranza Nicholas Pure hypercholesterolemia Acti ve Problem Aranza Nicholas CAD (coronary artery disease) Active Problem Aranza Nicholas 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 Active Problem 03/27/2019 Aranza Nicholas Shortness of breath Active Problem 03/27/2019 Aranza Nicholas Alzheimer Disease Active 08/07/2013 [facility] Coronary Artery Stenosis Active 08/07/2013 [facility] Essential Hypertension Active 08/07/2013 [facility] Prostate Cancer Active 08/07/2013 [facility] Rheumatoid Arthritis Active 08/07/2013 [facility] LUMBAGO WITH SCIATICA, RIGHT SIDE Active [facility] [place] LOW BACK PAIN Active [facility] [place] MUSCLE WEAKNESS (GENERALIZED) Active [facility] [place] LIMITATION OF ACTIVITIES DUE TO DISABILI Active [facility] [place] STIFFNESS OF UNSPECIFIED JOINT, NOT ELSE Active [facility] [place] Medications Medication Details Route Status Patient Instructions Ordering Provider Order Date Source PredniSONE 1 tablet Orally Active 5 MG Orally Once a day Pro 12/25/2018 [facility] PredniSONE 1 tablet Orally Active 5 MG Orally q0d x 4wks and then 1 tab prn Cheryl 06/05/2018 [facility] Hydroxychloroquine Sulfate 1 t ablet with food or milk Orally Active 200 MG Orally bid Cheryl 05/24/2018 [facility] PredniSONE 1 tablet Orally Active 5 MG Orally Once a day Cheryl 05/24/2018 [facility] Hydroxychloroquine Sulfate 1 t ablet with food or milk Orally Active 200 MG Orally bid Cheryl 02/07/2018 [facility] Hydrochlorothiazide 1 tablet Orally Active 25 Orally Once a day Cristopher Nicholas Cyanocobalamin as directed Orally Active 1000 MCG/ML Orally once a week [place] [facility] Leflunomide 1 tablet Orally Active 20 [facility] tablet Orally Active 10 MG Orally Once a day [facility] Pro Pravastatin Sodium 1 tablet Orally Active 40 MG Orally Once a day Pro [facility] Donepezil Hydrochloride 1 tabl et at bedtime Orally Active 10 MG Orally Once a day [place] [facility] Hydrochlorothiazide 1 tablet i n the morning Orally Active 25 MG Orally Three times a Week [place] [facility] Protonix 1 tablet Orally Active 40 MG Orally Once a day [facility] Pro PredniSONE 1 tablet Orally Active 5 MG Orally Once a day [facility] Pro Plavix 1 tablet Orally Active 75 MG Orally Once a day [facility] Pro Metoprolol Tartrate 1 tablet w ith food Orally Active 25 MG Orally Twice a day [place] [facility] Vitamin D (Ergocalciferol) 1 c apsule Orally Active 57050 UNIT Orally once a week [place] Esteban Hardiner Hydroxychloroquine Sulfate 1 t ablet with food or milk Orally Active 200 MG Orally bid [facility] Esteban Hardiner Hydroxychloroquine Sulfate 1 t ablet with food or milk Orally Active 200 MG Orally bid [place] Esteban Hardiner Protonix 40 MG Oral Packet (A ctive) Active [facility] Plavix 75 MG Oral Tablet (Act viky) Active [facility] Lisinopril 10 MG Oral Tablet (Active) Active [facility] Lipitor 10 MG Oral Tablet (Ac tive) Active [facility] Meloxicam 15 MG Oral Tablet ( Active) Active [facility] Hydroxychloroquine Sulfate 200 MG Oral Tablet (Active) Active [facility] Furosemide 20 MG Oral Tablet (Active) Active [facility] Esgic CAPS (Active) Active [facility] Famotidine TABS (Active) Active [facility] Folic Acid TABS (Active) Active [facility] Multi Vitamin/Minerals Oral Tablet (Active) Active [facility] MTX Support Oral Tablet (Acti ve) Active [facility] Protonix 40 MG Oral Tablet Delayed Release (Active) Active [facility] Allergies, Adverse Reactions, Alerts Substance Category Reaction Severity Reaction type Status Date Reported Comments Source Hydroxychloroquine Sulfate Adv erse Reaction worked but too expensive Adverse Reaction Active 03/29/2019 [facility] Sulfasalazine Adverse Reaction Info Not Available Adverse Reaction Active 05/16/2019 [facility] No Known Drug Allergies drug a llergy drug aller gy Active [facility] Immunizations Immunization Date Given Site Status Last Updated Comments Source Influenza completed [facility] PPD completed [facility] Pneumo completed [facility] Results No Data Provided for This Section Pathology Reports No Data Provided for This Section Diagnostic Reports Report Value Date Source Renal Stone CT Radiation Dose CTDIVOL = 0 (mGy): DLP = 517.25 (mGy-cm) Not described above, there is mild periureteric stranding on the left. Differential considerations include UTI, or sequela of recent stone passage. Correlate clinically. James Lynne MD On 12/12/2019 14:02:57; [id number] Radiation Dose CTDIVOL = 0 (mGy): DLP = 517.25 (mGy-cm) PROCEDURE INFORMATION: Exam: CT Abdomen And Pelvis Without Contrast Exam date and time: 12/12/2019 1:07 PM Age: 79 years old Clinical indication: Hematuria, unspecified; Additional info: /r31.9 hematuria, unspecified TECHNIQUE: Imaging protocol: Computed tomography of the abdomen and pelvis without contrast. Radiation optimization: All CT scans at this facility use at least one of these dose optimization techniques: automated exposure control; mA and/or kV adjustment per patient size (includes targeted exams where dose is matched to clinical indication); or iterative reconstruction. COMPARISON: PELVIS LIMITED 02/27/2015 11:18 AM RADIATION DOSE METRICS: Total DLP: 517.25 mGy-cm FINDINGS: Lungs: Mild bilateral lower lobe dependent subsegmental atelectasis. Liver: Normal. No mass. Gallbladder and bile ducts: Cholecystectomy. No pathologic bile duct dilatation. Pancreas: Normal. No ductal dilation. Spleen: Normal. No splenomegaly. Adrenals: Normal. No mass. Kidneys and ureters: extrarenal pelvis left kidney is anatomic variant. No hydronephrosis otherwise. No obstructing calculus or lesion seen. 3 mm calcification within the midpole the left kidney is most likely vascular calcification. 1 mm calcification within the left renal lower pole could be vascular or calyceal nonobstructing calculus. No suspicious solid renal mass lesions appreciated. Stomach and bowel: Colonic diverticulosis without inflammation. Appendix: No evidence of appendicitis. Intraperitoneal space: Unremarkable. No free air. No significant fluid collection. Vasculature: Unremarkable. No abdominal aortic aneurysm. Lymph nodes: Unremarkable. No enlarged lymph nodes. Bladder: Nondistended but thick-walled urinary bladder. Correlate clinically for cystitis. Reproductive: Unremarkable as visualized. Bones/joints: Unremarkable. No acute fracture. Soft tissues: Unremarkable. IMPRESSION: Nondistended but thick-walled urinary bladder. Correlate clinically for cystitis. No urinary tract obstruction or obstructing calculi appreciated. 3 mm left renal calcification, likely va scular. 1 mm lower pole left renal calculus is indeterminate for vascular versus nonobstructing renal calculus. No solid renal lesions appreciated. Cholecystectomy without pathologic bile duct dilatation. Colonic diverticulosis without inflammation. 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 History of cholecystectomy. ADDITIONAL INFORMATION: None. COMPARISON: 02/27/2015. TECHNIQUE: Multiplanar grayscale and color Doppler ultrasound images of the abdomen. FINDINGS: Liver: Craniocaudal length: 17.7 cm. Enlarged. Echogenicity: Heterogeneously diffusely increased. Some mild geographic areas of normal echogenicity liver are present. Surface nodularity: None Mass (size and location): None. Portal vein: 11 mm with hepatopetal flow. Bile ducts: Common bile duct diameter: 5 mm. Normal. Intrahepatic ducts: Normal. Gallbladder: Surgically absent Pancreas: No abnormalities of the visualized portions of the pancreas are demonstrated. Portions of the pancreas are obscured by overlying bowel gas. Spleen: Craniocaudal length: 9.6 cm. Normal. Mass or focal lesion (size and location): None. Right kidney: Size: 11.5 x 4.8 x 5.1 cm. Normal. Hydronephrosis: None. Echogenicity: Normal. Mass/Stone/Cyst (size and location): None. Left kidney: Size: 11.6 x 5.1 x 5.0 cm. Normal. Hydronephrosis: None. Echogenicity: Normal. Mass/Stone/Cyst (size and location): None. Abdominal aorta and IVC: Visualized portions are normal. Ascites: None Pleural Effusions: None IMPRESSION: 1. Nonspecific hepatomegaly and increase d liver echogenicity, findings most compatible with diffuse fatty infiltration (steatosis) of the liver. Some areas of heterogeneous normal echogenicity liver likely represent areas of focal fatty sparing. No discrete liver mass is seen. 2. Status post cholecystectomy. 08/06/2019 [facility] Foot 2 views bilateral DX EXAM : X-RAY BILATERAL FEET 2 VIEWS DATE: 09/07/2015 9:32 AM CAREER DEVELOPMENT COUNSELOR INDICATION: Right foot heel pain. Dorsal and posterior midfoot pain of the left foot. No history of trauma. Symptoms have been present for 2 months. COMPARISON: None TECHNIQUE: AP, lateral views FINDINGS: Hallux valgus is present bilaterally, right-sided greater than left. There is associated mild asymmetric joint space narrowing and osteophyte formation at the 1st metatarsophalangeal joints bilaterally. Mild osteoarthritic changes are seen at the distal interphalangeal joint of the right 2nd toe with associated osteophyte formation and joint space narrowing. No fractures or osseous destructive lesions are seen. Atherosclerotic calcifications are seen in the bilateral ankles and feet. IMPRESSION: 1. Bilateral hallux valgus with mild carolyn ateral 1st metatarsophalangeal joint osteoarthritis. 2. Mild osteoarthritis of the distal int erphalangeal joint of the right 2nd toe 3. Atherosclerotic vascular disease of t he bilateral ankles and feet. 09/07/2015 [facility] Pelvis Limited US EXAM: US ABD OMEN EXAM: US PELVIS TRANSABDOMINAL LIMITED DATE: 02/27/2015 COMPARISON EXAMS: Liver ultrasound of 07/30/2012 CLINICAL INDICATION: Abdominal pain and pelvic cramping.. DATA: None TECHNIQUE: Multiple transverse and longitudinal images through the abdomen were obtained sonographically with additional supplemental color flow imaging. Permanent images were recorded.Multiple transverse and longitudinal images through the pelvis were obtained transabdominally with additional supplemental color flow imaging. Permanent images were recorded. DISCUSSION: The liver is of normal size and echogenicity with no focal abnormalities. No intra or extrahepatic biliary ductal dilatation is seen with the common bile duct measuring 4.7 in diameter along its visualized course. The gallbladder is sonographically within normal limits with no wall thickening, pericholecystic fluid, gallstones, or sonographic Seals's sign. The spleen is normal in appearance measuring 9.7 cm in length. Both kidneys are of normal size and echogenicity with no hydronephrosis, masses, or calculi with the right kidney measuring 10.8 cm in length and with the left kidney measuring 11.8 cm in length. No abnormalities of the abdominal aorta or inferior vena cava are demonstrated. Hepatopetal flow is seen in the main portal vein which measures 11 mm in diameter. A portion of the pancreatic tail is obscured by overlying bowel gas. No abnormalities of the visualized portions of the pancreas are seen. The urinary bladder is normal in appearance with no wall thickening, masses, or calculi. Prevoid bladder volume is estimated to be 33 cc. Post void bladder volume is estimated to be 5 cc. Bilateral ureteral jets are seen under color flow imaging confirming ureteral patency. The prostate gland is grossly normal in appearance measuring 2.8 x 2.2 x 2.3 cm No free fluid is seen in the pelvis. IMPRESSION: No sonographic abnormalities of the abdomen and pelvis are demonstrated. If symptoms persist or worsen, CT scanning with contrast of the abdomen and pelvis should be considered. 02/27/2015 [facility] Abdomen complete US EXAM: US A BDOMEN EXAM: US PELVIS TRANSABDOMINAL LIMITED DATE: 02/27/2015 COMPARISON EXAMS: Liver ultrasound of 07/30/2012 CLINICAL INDICATION: Abdominal pain and pelvic cramping.. DATA: None TECHNIQUE: Multiple transverse and longitudinal images through the abdomen were obtained sonographically with additional supplemental color flow imaging. Permanent images were recorded.Multiple transverse and longitudinal images through the pelvis were obtained transabdominally with additional supplemental color flow imaging. Permanent images were recorded. DISCUSSION: The liver is of normal size and echogenicity with no focal abnormalities. No intra or extrahepatic biliary ductal dilatation is seen with the common bile duct measuring 4.7 in diameter along its visualized course. The gallbladder is sonographically within normal limits with no wall thickening, pericholecystic fluid, gallstones, or sonographic Seals's sign. The spleen is normal in appearance measuring 9.7 cm in length. Both kidneys are of normal size and echogenicity with no hydronephrosis, masses, or calculi with the right kidney measuring 10.8 cm in length and with the left kidney measuring 11.8 cm in length. No abnormalities of the abdominal aorta or inferior vena cava are demonstrated. Hepatopetal flow is seen in the main portal vein which measures 11 mm in diameter. A portion of the pancreatic tail is obscured by overlying bowel gas. No abnormalities of the visualized portions of the pancreas are seen. The urinary bladder is normal in appearance with no wall thickening, masses, or calculi. Prevoid bladder volume is estimated to be 33 cc. Post void bladder volume is estimated to be 5 cc. Bilateral ureteral jets are seen under color flow imaging confirming ureteral patency. The prostate gland is grossly normal in appearance measuring 2.8 x 2.2 x 2.3 cm No free fluid is seen in the pelvis. IMPRESSION: No sonographic abnormalities of the abdomen and pelvis are demonstrated. If symptoms persist or worsen, CT scanning with contrast of the abdomen and pelvis should be considered. 02/27/2015 [facility] Consultation Notes No Data Provided for This Section Discharge Summaries No Data Provided for This Section History and Physicals No Data Provided for This Section Vital Signs Vital Sign Value Date Comments Source Weight 170.5 05/16/2019 [facility] Height 63 1 07/16/2018 [facility] Temperature Oral (F) 98 F 05/16/2019 [facility] Heart Rate 76 05/16/2019 [facility] Diastolic (mm Hg) 74 05/16/2019 [facility] Systolic (mm Hg) 112 05/16/2019 [facility] Weight 172.8 03/29/2019 [facility] Height 63 0 03/29/2019 [facility] Temperature Oral (F) 98.0 F 03/29/2019 [facility] Heart Rate 68 03/29/2019 [facility] Diastolic (mm Hg) 60 03/29/2019 [facility] Systolic (mm Hg) 108 03/29/2019 [facility] Weight 171.1 12/25/2018 [facility] Height 63 0 12/25/2018 [facility] Temperature Oral (F) 98.2 F 12/25/2018 [facility] Heart Rate 84 12/25/2018 [facility] Diastolic (mm Hg) 62 12/25/2018 [facility] Systolic (mm Hg) 98 12/25/2018 [facility] Weight 169.3 09/24/2018 [facility] Height 63 0 09/24/2018 [facility] Temperature Oral (F) 97.9 F 09/24/2018 [facility] Heart Rate 80 09/24/2018 [facility] Diastolic (mm Hg) 78 09/24/2018 [facility] Systolic (mm Hg) 118 09/24/2018 [facility] Weight 174.3 06/26/2018 [facility] Height 63 1 08/27/2017 [facility] Temperature Oral (F) 96.1 F 06/26/2018 [facility] Heart Rate 64 06/26/2018 [facility] Diastolic (mm Hg) 86 06/26/2018 [facility] Systolic (mm Hg) 132 06/26/2018 [facility] Weight 172.7 06/08/2018 [facility] Height 63 1 08/08/2017 [facility] Temperature Oral (F) 97.6 F 06/08/2018 [facility] Heart Rate 70 06/08/2018 [facility] Diastolic (mm Hg) 68 06/08/2018 [facility] Systolic (mm Hg) 122 06/08/2018 [facility] Weight 173 02/12/2018 [facility] Height 63 0 02/12/2018 [facility] Temperature Oral (F) 96.3 F 02/12/2018 [facility] Heart Rate 64 02/12/2018 [facility] Diastolic (mm Hg) 82 02/12/2018 [facility] Systolic (mm Hg) 130 02/12/2018 [facility] Weight 175.6 02/07/2018 [facility] Height 63.5 02/07/2018 [facility] Temperature Oral (F) 98.1 F 02/07/2018 [facility] Heart Rate 72 02/07/2018 [facility] Diastolic (mm Hg) 80 02/07/2018 [facility] Systolic (mm Hg) 142 02/07/2018 [facility] Encounters Location Location Details Encounter Type Encounter Number Reason For Visit Attending Provider ADM Date DC Date Status Source AUDIT [id number] 04/05/2013 04/05/2013 [facility] Adolph REEVES zoya: LULU MUNOZ, Status: Pen, Time: 1:15 PM [id number] 04/10/20 13 04/05/2013 [facility] AUDIT [id number] 08/07/2013 08/07/2013 [facility] Adolph REEVES zoya: LULU MUNOZ, Status: Basim, Time: 1:15 PM [id number] 12/04/19 14 08/07/2013 [facility] [place] [facility] [id number] Lulu Munoz 02/27/2015 02/28/2015 [facility] [place] [facility] [id number] Lulu Munoz 09/07/2015 09/08/2015 [facility] [place] [facility] [id number] Lulu Munoz 12/02/2016 01/01/2017 [facility] [place] [facility] [place] [facility] [id number] 06 Lulu Munoz 08/06/2019 08/07/2019 [facility] [place] Procedures No Data Provided for This Section Assessment and Plan No Data Provided for This Section Plan of Care No Data Provided for This Section Social History Social History Date Source No data available for this section 08/07/2019 [facility] [place] No data available for this section 01/01/2017 [facility] Aguirre Marital History - Currently (Active) Never A Smoker (Active) 08/07/2013 [facility] Family History Value Date S ource Paternal history of Lung Cancer (V16.1); (Active) Maternal history of Alzheimer Disease (Active) 08/07/2013 [facility] Advance Directives Order Name Results Value Date Source Advance Directives Advance Dir ectives No Advance Directives available. 08/07/2013 [facility] Advance Directives Advance Dir ectives No Advance Directives available. 04/05/2013 [facility] Functional Status No Data Provided for This Section
--- OUTSIDE RECORDS SUMMARY | 2019-12-12 18:02 | XMS REPORT | Continuity of Care Document ---
Author Author [facility] t Organization [facility] Address [address] [place] [address] Phone Unavailable Care Team Providers Care Primary Grade Teacher Name Role Phone Suleiman Munoz Attphys LUTHER OLIVIA Attphys Unavailable Problems Condition Name Condition Details Condition Category Status Onset Date Resolution Date Last Treatment Date Treating Clinician Comments Source LBP W/SCIATICA LBP W/SCIATICA Active 11/17/2016 [facility] Diagnosis Active 2016-11-17 12:53:00 2016-12-20 11:39:00 Ewa Almaraz M79.671 - PAIN IN RIGHT FOOT M 79.671 - PAIN IN RIGHT FOOT Active 09/04/2015 [facility] Diagnosis Active 2015-09-04 00:0 1:00 2015-09-07 09:27:00 [facility] 562.11 - DIVERTICULITIS 562. 11 - DIVERTICULITIS Active 02/25/2015 [facility] Diagnosis Active 2015-02-25 00:01:00 2015-03-05 05:49:00 Ewa Almaraz Limitation of activities due to disability Limitation of activities due to disability 01/03/2017 [facility] Problem 2017-01-03 00:04:58 [facility] Stiffness of unspecified joint, not elsewhere classifi ed Stiffness of unspecified joint, not elsewhere classified 01/03/2017 [facility] Problem 2017-01-03 00:04:58 [facility] Osteopenia Oste openia Active Problem 08/22/2019 Esteban Pro Problem Active 2019-08-22 03:47:50 [facility] [place] Fatigue Fati jayda Active Problem 08/22/2019 Esteban Pro Problem Active 2019-08-22 03:47:50 [facility] Shoulder pain, left Shou lder pain, left Active Problem 08/22/2019 Esteban Pro Problem Active 2019-08-22 03:47:50 [facility] [place] 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 rheumatoid factor, multip le sites 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 rheumatoid factor, multiple sites Active Problem 08/22/2019 Esteban Pro Problem Active 2019-08-22 03:47:50 [facility] Other shelter (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 Active Problem 08/22/2019 Esteban Pro Problem Ac tive 2019-08-22 03:47:50 Ewa frank Back pain Back pain Active Problem 08/22/2019 Esteban Pro Problem Active 2019-08-22 03:47:50 [facility] [place] 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 Active Problem 08/22/2019 Esteban Pro Problem Active 2019-08-22 03:47:50 [facility] Low vitamin D level Low vitamin D level Active Problem 08/22/2019 Esteban Pro Problem Active 2019-08-22 03:47:50 [facility] Pain in right shoulder Pain in right shoulder Active Problem 08/22/2019 Esteban Pro Problem Active 2019-08-22 03 :47:50 [facility] Rotator cuff tear, right Rota tor cuff tear, right Active Problem 08/22/2019 Estebanloyda Pro Problem Active 2019-08-22 03 :47:50 [facility] Leg edema, left Leg edema, left Active Problem 03/27/2019 Aranza Recinoscristofer Problem Active 2019-03-27 02:45:00 [facility] Right arm numbness Righ t arm numbness Active Problem 03/27/2019 Aranza O Jorjecristofer Problem Active 2019-03-27 02:45:00 [facility] Exertional dyspnea Exer tional dyspnea Active Problem 03/27/2019 Lissethamed O Cristopher Problem Active 2019-03-27 02:45:00 [facility] Encounter for pre-operative cardiovascular clearance Encounter for pre-operative cardiovascular clearance Active Problem 03/27/2019 Lissethamed [place] Jorjecristofer Problem Active 2019-03-27 02:45:00 [facility] 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 Active Problem 03/27/2019 Aranza [place] Nicholas Problem A ctive 2019-03-27 02:45:00 Ewa frank Abnormal electrocardiogram Abn ormal electrocardiogram Active Problem 03/27/2019 Mohamed O Cristopher Problem Active 2019-03-27 02:45:00 [facility] Arteriosclerosis of both carotid arteries Arteriosclerosis of both carotid arteries Active Problem 03/27/2019 Aranza Nicholas Problem Active 2019-03-27 02:45:00 [facility] Nonrheumatic mitral (valve) insufficiency Nonrheumatic mitral (valve) insufficiency Active Problem 03/27/2019 Aranza Nicholas Problem Active 2019-03-27 02:45:00 [facility] 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 Active Problem 03/27/2019 Aranza Nicholas Problem Active 2019-03-27 02:45:00 [facility] LVH (left ventricular hypertrophy) due to hypertensive disease LVH (left ventricular hypertrophy) due to hypertensive disease Active Problem 03/27/2019 Aranza Nicholas Problem Active 2019-03-27 02:45:0 0 [facility] Essential hypertension Esse ntial hypertension Active Problem 03/27/2019 Aranza Nicholas Problem Active 28-03-18 02:45:00 [facility] Abnormal stress test Abno rmal stress test Active Problem 03/27/2019 Aranza Nicholas Problem Active 2019-03-27 02:45:00 [facility] Stented coronary artery Sten yamile coronary artery Active Problem 03/27/2019 Aranza Nicholas Problem Active 28-03-18 02:45:00 [facility] Former smoker Form er smoker Active Problem 03/27/2019 Aranza Nicholas Problem Active 2019-03-27 02:45:00 [facility] Pure hypercholesterolemia Pure hypercholesterolemia Active Problem 03/27/2019 Aranza Nicholas Problem Active 28-03-18 02:45:00 [facility] CAD (coronary artery disease) CAD (coronary artery disease) Active Problem 03/27/2019 Aranza Nicholas Problem Active 2019-03-27 02:45:00 [facility] Atherosclerosis of [place] arteries of extremity with i ntermittent claudication Atherosclerosis of [place] arteries of extremity with intermittent claudication Active Problem 03/27/2019 Aranza Nicholas Problem Active 2019-03-27 02:45:00 [facility] [place] Shortness of breath Shor tness of breath Active Problem 03/27/2019 Aranza Nicholas Problem Active 2019-03-27 02:45:00 [facility] Alzheimer Disease Alzh eimer Disease Active 08/07/2013 [facility] Problem Active 2013-08-07 19:51:41 M amy Almaraz Coronary Artery Stenosis Olamide nary Artery Stenosis Active 08/07/2013 [facility] Problem Active 2013-08-07 19:51: 41 [facility] Essential Hypertension Esse ntial Hypertension Active 08/07/2013 [facility] Problem Active 2013-08-07 19:51:41 [facility] Prostate Cancer Pros santiago Cancer Active 08/07/2013 [facility] Problem Active 2013-08-07 19:51:41 M amy Almaraz Rheumatoid Arthritis Rheu matoid Arthritis Active 08/07/2013 [facility] Problem Active 2013-08-07 19:51:41 [facility] LUMBAGO WITH SCIATICA, RIGHT SIDE LUMBAGO WITH SCIATICA, RIGHT SIDE Active [facility] Diagnosis Active 2016 11:39:00 [facility] LOW BACK PAIN LOW BACK PAIN Active [facility] Diagnosis Active 2016-12-20 11:39:00 Ct paddy Almaraz MUSCLE WEAKNESS (GENERALIZED) MUSCLE WEAKNESS (GENERALIZED) Active [facility] Diagnosis Active 201 01-12-13 11:39:00 [facility] LIMITATION OF ACTIVITIES DUE TO DISABILI LIMITATION OF ACTIVITIES DUE TO DISABILI Active [facility] Diagnosis Active 2016-12-20 11:39:00 [facility] STIFFNESS OF UNSPECIFIED JOINT, NOT ELSE STIFFNESS OF UNSPECIFIED JOINT, NOT ELSE Active [facility] Diagnosis Active 2016-12-20 11:39:00 [facility] Allergies, Adverse Reactions, Alerts Allergy Name Allergy Type Status Severity Reaction(s) Onset Date Inacti ve Date Treating Clinician Comments Source Sulfasalazine Sulfasalazine Active Info Not Available 7 00:00:00 [facility] Hydroxychloroquine Sulfate Hydroxychloroquine Sulfate Active worked but too expensive 2019-03-29 00:00:00 [facility] No Known Drug Allergies No Known Drug Allergies Active [facility] Social History Social Habit Start Date Stop Date Quantity Comments Source Social History 2013-08-07 19:51:41 2013-08-07 19:51:41 [facility] Medications Ordered Medication Name Filled Medication Name Start Date Stop Da te Current Medication? Ordering Clinician Indication Dosage Frequency Signature (SIG) Comments Components Source Lisinopril 2019-05-18 03:45:39 Yes Watson Pro 1 tablet [facility] Pravastatin Sodium 2019-05-18 03:45:39 Yes Watson Hardiner 1 tablet [facility] Donepezil Hydrochloride 2019-05-18 03:45:39 Yes Watson Lloyd aller 1 tablet at bedtime [facility] Hydrochlorothiazide 2019-05-18 03:45:39 Yes Watson Hardine r 1 tablet in the morning [facility] Protonix 2019-05-18 03:45:39 Yes Watson Hardiner 1 tablet [facility] Plavix 2019-05-18 03:45:39 Yes Watson Hardiner 1 ta blet [facility] Metoprolol Tartrate 2019-05-18 03:45:39 Yes Watson Coronado r 1 tablet with food [facility] Hydroxychloroquine Sulfate 2019-05-18 03:45:39 Yes Tracy Hardiner 1 tablet with food or milk [facility] n Hydrochlorothiazide 2019-03-27 02:45:00 Yes Aranza Jorjeoudi 1 tablet [facility] Cyanocobalamin 2018-12-27 02:45:49 Yes Watson Pro as directed [facility] Vitamin D (Ergocalciferol) 2018-12-27 02:45:49 Yes Tracy Hardiner 1 capsule [facility] PredniSONE 2018-12-25 00:00:00 Yes Watson Hardiner 1 tablet [facility] PredniSONE 2018-09-27 02:46:41 Yes Wajeeha Cheryl 1 tablet [facility] Hydroxychloroquine Sulfate 2018-09-27 02:46:41 Yes Wajee briscoe Cheryl 1 tablet with food or milk [facility] PredniSONE 2018-06-05 00:00:00 Yes Wajeeha Cheryl 1 tablet [facility] Hydroxychloroquine Sulfate 2018-05-24 00:00:00 Yes Wajee briscoe Cheryl 1 tablet with food or milk [facility] PredniSONE 2018-05-24 00:00:00 Yes Wajeeha Cheryl 1 tablet [facility] Leflunomide 2018-02-09 02:49:15 Yes Wajeeha Cheryl 1 tablet [facility] Hydroxychloroquine Sulfate 2018-02-07 00:00:00 Yes Wajee briscoe Cheryl 1 tablet with food or milk [facility] n Plavix 75 MG Oral Tablet 2013-08-07 19:51:41 Yes (Active) [facility] Lisinopril 10 MG Oral Tablet 2013-08-07 19:51:41 Yes (Active) Ewa Almaraz Lipitor 10 MG Oral Tablet 2013-08-07 19:51:41 Yes (Active) Ewa Almaraz Meloxicam 15 MG Oral Tablet 2013-08-07 19:51:41 Yes (Active) Ewa Almaraz Hydroxychloroquine Sulfate 200 MG Oral Tablet 2013-08-07 19:51:4 1 Yes (Active) Ewa Almaraz Furosemide 20 MG Oral Tablet 2013-08-07 19:51:41 Yes (Active) Ewa Almaraz MTX Support Oral Tablet 2013-08-07 19:51:41 Yes (Active) Ewa Almaraz Protonix 40 MG Oral Tablet Delayed Release 2013-08-07 19:51:41 Yes (Active) Ewa Almaraz Protonix 40 MG Oral Packet 2013-04-05 12:45:33 Yes (Active) Ewa Almaraz Esgic CAPS 2013-04-05 12:45:33 Yes (Active) Ewa Almaraz Famotidine TABS 2013-04-05 12:45:33 Yes (Ac tive) [facility] Folic Acid TABS 2013-04-05 12:45:33 Yes (Ac tive) Ewa Almaraz Multi Vitamin/Minerals Oral Tablet 2013-04-05 12:45:33 Yes (Active) Ewa Almaraz Vital Signs Vital Name Observation Time Observation Value Comments Source Weight 2019-05-16 15:30:00 [facility] [place] Height 2019-05-16 15:30:00 [facility] [place] Temperature Oral (F) 2019-05-16 15:30:00 98 F [facility] [place] Heart Rate 2019-05-16 15:30:00 [facility] [place] Diastolic (mm Hg) 2019-05-16 15:30:00 [facility] Systolic (mm Hg) 2019-05-16 15:30:00 [facility] Weight 2019-03-29 15:45:00 [facility] Height 2019-03-29 15:45:00 [facility] [place] Temperature Oral (F) 2019-03-29 15:45:00 98.0 F [facility] Heart Rate 2019-03-29 15:45:00 [facility] [place] Diastolic (mm Hg) 2019-03-29 15:45:00 [facility] [place] Systolic (mm Hg) 2019-03-29 15:45:00 [facility] Weight 2018-12-25 14:45:00 [facility] Height 2018-12-25 14:45:00 [facility] Temperature Oral (F) 2018-12-25 14:45:00 98.2 F [facility] [place] Heart Rate 2018-12-25 14:45:00 [facility] [place] Diastolic (mm Hg) 2018-12-25 14:45:00 [facility] [place] Systolic (mm Hg) 2018-12-25 14:45:00 Jw aditya Sung Weight 2018-09-24 14:00:00 [facility] Height 2018-09-24 14:00:00 [facility] Temperature Oral (F) 2018-09-24 14:00:00 97.9 F [facility] [place] Heart Rate 2018-09-24 14:00:00 [facility] Diastolic (mm Hg) 2018-09-24 14:00:00 [facility] Systolic (mm Hg) 2018-09-24 14:00:00 Jw burgess [place] Weight 2018-06-26 14:30:00 [facility] [place] Height 2018-06-26 14:30:00 [facility] [place] Temperature Oral (F) 2018-06-26 14:30:00 96.1 F [facility] Heart Rate 2018-06-26 14:30:00 [facility] [place] Diastolic (mm Hg) 2018-06-26 14:30:00 [facility] [place] Systolic (mm Hg) 2018-06-26 14:30:00 Jw burgess [facility] Weight 2018-06-08 15:15:00 [facility] [place] Height 2018-06-08 15:15:00 [facility] [place] Temperature Oral (F) 2018-06-08 15:15:00 97.6 F [facility] [place] Heart Rate 2018-06-08 15:15:00 [facility] [place] Diastolic (mm Hg) 2018-06-08 15:15:00 [facility] [place] Systolic (mm Hg) 2018-06-08 15:15:00 Jw burgess [place] Weight 2018-02-12 15:45:00 [facility] [place] Height 2018-02-12 15:45:00 [facility] [place] Temperature Oral (F) 2018-02-12 15:45:00 96.3 F [facility] [place] Heart Rate 2018-02-12 15:45:00 [facility] [place] Diastolic (mm Hg) 2018-02-12 15:45:00 [facility] [place] Systolic (mm Hg) 2018-02-12 15:45:00 Jw [facility] Weight 2018-02-07 13:15:00 [facility] Height 2018-02-07 13:15:00 [facility] [place] Temperature Oral (F) 2018-02-07 13:15:00 98.1 F [facility] Heart Rate 2018-02-07 13:15:00 [facility] [place] Diastolic (mm Hg) 2018-02-07 13:15:00 [facility] Systolic (mm Hg) 2018-02-07 13:15:00 Jw [facility] [place] Procedures This patient has no known procedures. Encounters Start Date/Time End Date/Time Encounter Type Admission Type [facility] Care Department Encounter ID Source 2019-08-21 12:47:00 2019-08-21 12:47:00 Outpatient MD BART Pacheco MD [place] [id number] Esteban Pro MD 2019-08-06 10:36:00 2019-08-06 23:59:00 Outpatient Christopher Munoz MHOIB MHOIB [id number] 2019-05-16 09:30:00 2019-05-16 09:30:00 Outpatient Watson ARRIAGA [id number] Esteban Pro MD 2019-03-29 10:45:00 2019-03-29 10:45:00 Outpatient Watson Pro MD PA [id number] Esteban Pro MD 2019-03-25 16:34:00 2019-03-25 16:34:00 Outpatient Aranza Nicholas MD [place] [id number] [employer] 2018-12-25 09:45:00 2018-12-25 09:45:00 Outpatient Watson ARRIAGA [id number] VITALIY Pro MD 2018-12-24 15:11:00 2018-12-24 15:11:00 Outpatient Watson Pro MD PA [id number] VITALIY Pro MD 2018-12-24 08:12:00 2018-12-24 08:12:00 Outpatient Watson Pro MD PA [id number] Esteban Pro MD 2018-09-24 09:46:00 2018-09-24 09:46:00 Outpatient Watson Pro MD PA [id number] Esteban Pro MD 2018-09-24 09:00:00 2018-09-24 09:00:00 Outpatient Watson Pro MD PA [id number] Esteban Pro MD 2018-06-26 08:30:00 2018-06-26 08:30:00 Outpatient Watson ARRIAGA [id number] Esteban Pro MD 2018-06-25 10:16:00 2018-06-25 10:16:00 Outpatient Watson Pro MD PA [id number] Esteban Pro MD 2018-06-22 10:48:00 2018-06-22 10:48:00 Outpatient Watson Pro MD PA [id number] Esteban Pro MD 2018-06-08 10:05:00 2018-06-08 10:05:00 Outpatient Watson Pro MD PA [id number] Estbean Pro MD 2018-06-08 09:15:00 2018-06-08 09:15:00 Outpatient Watson ARRIAGA [id number] Esteban Pro MD 2018-06-07 14:26:00 2018-06-07 14:26:00 Outpatient Watson Pro MD PA [id number] Esteban Pro MD 2018-06-04 16:28:00 2018-06-04 16:28:00 Outpatient Watson ARRIAGA [id number] Esteban Pro MD 2018-05-24 12:57:00 2018-05-24 12:57:00 Outpatient Watson ARRIAGA [id number] Esteban Pro MD 2018-02-12 10:45:00 2018-02-12 10:45:00 Outpatient Watson ARRIAGA [id number] Esteban Pro MD 2018-02-07 08:15:00 2018-02-07 08:15:00 Outpatient Watson ARRIAGA [id number] Esteban Pro MD 2017-09-21 16:49:00 2017-09-21 16:49:00 Outpatient Watson ARRIAGA [id number] Esteban Pro MD 2016-12-02 08:25:00 2016-12-31 23:59:00 Outpatient Ismael Munoz [id number] 2015-09-07 09:16:00 2015-09-07 23:59:00 Outpatient Christopher Munoz OIB MHOIB [id number] 2015-02-27 10:44:00 2015-02-27 23:59:00 Outpatient Christopher Munoz OIB MHOIB [id number] 2013-08-07 13:51:41 2013-08-07 13:51:41 Outpatient MHIE MHIE [id number] 2013-04-05 07:45:34 2013-04-05 07:45:33 Outpatient MHIE MHIE [id number] Results Test Description Test Time Test Comments Results Result Comments Source FOOT LEFT AP [place] [address] Patient Name: NELLA DICK MR #: [id number] : 1940 Age/Sex: 77/M Req #: [id number] Adm Physician: Ordered by: LUTHER OLIVIA DPM Report #: [id number] Location: OR Room/Bed: Procedure: [id number] DX/FOOT LEFT AP LAT Exam Date: 06/28/17 Exam Time: 0910 REPORT STATUS: Signed PROCEDURE: FOOT LEFT AP T LAT TECHNIQUE: AP and lateral views left foot INDICATION: Postoperative evaluation COMPARISON: None. FINDINGS: See conclusion. CONCLUSION: 1. Expected immediate postoperative sequela of great toe bunionectomy and hallux valgus correction. 2. Expected postoperative sequela of K wire fixation of second toe hammertoe correction. 3. No acute abnormality. Dictated by: Ashley Phipps M.D. on 06/28/2017 at 10:15 Electronically approved by: Ashley Phipps M.D. on 06/28/2017 at 10:15 Dictated By: ASHLEY PHIPPS MD [id number] Transcribed By: DALILA on 06/28/17 1015 COPY TO: LUTHER OLIVIA DPM CHEST 2 VIEWS [place] [address] Patient Name: NELLA DICK MR #: [id number] : 1940 Age/Sex: 77/M Req #: [id number] Adm Physician: Ordered by: LUTHER OLIVIA DPM Report #: [id number] Location: OR Room/Bed: Procedure: DX/CHEST 2 VIEWS Exam Date: 06/26/17 Exam Time: 1312 REPORT STATUS: Signed PROCEDURE: X-RAY CHEST, TWO VIEWS COMPARISON: 10/23/2015. INDICATIONS: PREOP - LEFT FOOT SX FINDINGS: The lungs remain well inflated. No focal consolidation, pleural effusion, or pneumothorax. Minimal linear opacity in the lung bases compatible with subsegmental atelectasis. Stable cardiomediastinal contour with tortuosity and atherosclerotic calcification of the aortic arch. Normal heart size. No pulmonary edema. No acute osseous abnormality. Surgical clips project over the upper abdomen on lateral radiograph likely related to prior cholecystectomy. CONCLUSION: Bibasilar subsegmental atelectasis. Otherwise no acute cardiopulmonary abnormality. Dictated by: Bladimir Diaz M.D. on 06/26/2017 at 13:35 Electronically approved by: Bladimir Diaz M.D. on 06/26/2017 at 13:35 Dictated By: BLADIMIR DIAZ MD [id number] Transcribed By: DALILA on 06/26/17 1335 COPY TO: LUTHER OLIVIA DPM
[2019-12-12] MEDS ORDERED: SODIUM CHLORIDE 0.9% 500ML 500 ML IV ONE (20:15)
[2019-12-12] MEDS ORDERED: ACETAMINOPHEN 325 MG TAB PO ONE (20:15)
[2019-12-12] MEDS ORDERED: SODIUM CHLORIDE 0.9% 1000ML 1,000 ML IV ONE ×2 (20:15)
[2019-12-12] MEDS ORDERED: CEFEPIME 2 GM/NS 0.9% 100 ML 100 ML IV ONE (20:15)
[2019-12-12] MEDS ORDERED: SODIUM CHLORIDE 0.9% 1000ML 2,000 ML ONE (20:22)
[2019-12-12 20:33] LABS: BASOPHILS # (AUTO) 0.1 (0.0-0.1); BASOPHILS % 0.3 % (0.0-1.0); HEMATOCRIT 46.1 % (38.2-49.6); HEMOGLOBIN 15.1 g/dL (14.0-18.0); LYMPHOCYTES # (AUTO) 0.6 (1.0-3.2); LYMPHOCYTES % 2.2 % (18.0-39.1); MEAN CORPUSCULAR HEMOGLOBIN 30.6 pg (28-32); MEAN CORPUSCULAR HGB CONC 32.8 g/dL (31-35); MEAN CORPUSCULAR VOLUME 93.3 fL (81-99); MONOCYTES # (AUTO) 1.8 (0.2-0.8); NEUTROPHILS # (AUTO) 22.7 (2.1-6.9); NEUTROPHILS % 88.8 % (38.7-80.0); PLATELET COUNT 237 x10e3/uL (140-360); RED BLOOD COUNT 4.94 x10e6/uL (4.3-5.7); RED CELL DISTRIBUTION WIDTH 13.9 % (11.7-14.4)
[2019-12-12 20:44] LABS: INR 1.04; PROTHROMBIN TIME 14.2 seconds (11.9-14.5)
[2019-12-12 20:45] LABS: PARTIAL THROMBOPLASTIN TIME 29.4 seconds (23.8-35.5)
--- NOTE | 2019-12-12 20:47 | Emergency Department Note ---
History of Present Illnes History of Present Illness Chief Complaint: Abdominal Complaints History of Present Illness This is a 79 year old male who presents with complaint of fever or chills left flank pain and dysuria since yesterday. Patient reports fever at home 11.3 prior to arrival took Tylenol at 3:30 PM. Patient denies nausea vomiting diarrhea patient also denies shortness of breath and chest pain. Historian: Patient, Family Member Arrival Mode: Car Onset (how long ago): day(s) (1) Location: LEFT FLANK Quality: LEFT FLANK PAIN, DYSURIA, FEVER AND CHILLS Radiation: non-radiation Severity: moderate Onset quality: sudden Duration (how long): day(s) (1) Timing of current episode: constant Progression: waxing and waning Context: recent illness, recent surgery Relieving factors: none Exacerbating factors: none Associated symptoms: denies other symptoms Treatments prior to arrival: antipyretic (TYLENOL 650 MG AT 1530) Past Medical/Family History Physician Review I have reviewed the patient's past medical and family history. Any updates have been documented here. Past Medical History Recent Fever: Yes Clinical Suspicion of Infectio: No New/Unexplained Change in Ment: No Past Medical History: Hypertension, CAD, Cancer, Kidney Stones, UTI's, Hyperlipedemia Past Surgical History: Cholecysctectomy, PCI Other Surgery: PROSTATE Social History Smoking Cessation: Former smoker Alcohol Use: None Any Illegal Drug Use: No Family History Family history of heart diseas: No Other Last Tetanus: TUD Review of Systems Review of Systems Constitutional: as per HPI EENTM: no symptoms Cardiovascular: no symptoms Respiratory: no symptoms Gastrointestinal: no symptoms Genitourinary: as per HPI Musculoskeletal: no symptoms Neurological: no symptoms Psychological: no symptoms Endocrine: no symptoms Hematological/Lymphatic: no symptoms Review of other systems All other systems reviewed and negative. Physical Exam Related Data Allergies: Coded Allergies: No Known Allergies (Unverified , 10/23/15) Triage Vital Signs Vital Signs Date Time Temp Pulse Resp B/P (MAP) Pulse Ox O2 Delivery O2 Flow Rate FiO2 12/12/19 20:11 100.3 89 16 102/62 97 Vital signs reviewed: Yes Physical Exam CONSTITUTIONAL Constitutional: well-developed, well-nourished HENT HENT: normocephalic, atraumatic, oropharynx clear/moist, nose normal HENT L/R: left ext ear normal, right ext ear normal EYES Eyes: PERRL, conjunctivae normal NECK Neck: ROM normal PULMONARY Pulmonary: effort normal, breath sounds normal CARDIOVASCULAR Cardiovascular: regular rhythm, heart sounds normal, capillary refill normal, normal rate GASTROINTESTINAL Abdominal: soft, bowel sounds normal, tender (SUPRA PUBIC TENDERNESS), left CVA tenderness (MODERATE) GENITOURINARY Genitourinary: exam deferred SKIN Skin: warm, dry MUSCULOSKELETAL Musculoskeletal: ROM normal NEUROLOGICAL Neurological: alert, oriented x 3, no gross motor or sensory deficits PSYCHOLOGICAL Psychological: mood/affect normal, judgement normal Results Laboratory Result Diagram: 12/12/192022 Laboratory Laboratory Tests Test 12/12/19 21:15 12/12/19 20:23 Urine Color Straw (YELLOW) Urine Clarity Cloudy (CLEAR) Urine pH 6 (5 - 7) Urine Specific [place]ley 1.030 (1.010-1.025) Urine Protein 2+ (NEGATIVE) Urine Glucose (UA) Negative (NEGATIVE) Urine Ketones 2+ (NEGATIVE) Urine Blood Moderate (NEGATIVE) Urine Nitrite Positive (NEGATIVE) Urine Bilirubin Negative (NEGATIVE) Urine Urobilinogen 0.2 mg/dL (0.2 - 1) Urine Leukocyte Esterase Small (NEGATIVE) Urine RBC 6-10 /HPF (0-5) Urine WBC 21-50 /HPF (0-5) Urine Epithelial Cells None /LPF (NONE) Urine Bacteria Moderate /HPF (NONE) White Blood Count 25.54 x10e3/uL (4.8-10.8) Red Blood Count 4.94 x10e6/uL (4.3-5.7) Hemoglobin 15.1 g/dL (14.0-18.0) Hematocrit 46.1 % (38.2-49.6) Mean Corpuscular Volume 93.3 fL (81-99) Mean Corpuscular Hemoglobin 30.6 pg (28-32) Mean Corpuscular Hemoglobin Concent 32.8 g/dL (31-35) Red Cell Distribution Width 13.9 % (11.7-14.4) Platelet Count 237 x10e3/uL (140-360) Neutrophils (%) (Auto) 88.8 % (38.7-80.0) Lymphocytes (%) (Auto) 2.2 % (18.0-39.1) Monocytes (%) (Auto) 7.0 % (4.4-11.3) Eosinophils (%) (Auto) 0.0 % (0.0-6.0) Basophils (%) (Auto) 0.3 % (0.0-1.0) Neutrophils # (Auto) 22.7 (2.1-6.9) Lymphocytes # (Auto) 0.6 (1.0-3.2) Monocytes # (Auto) 1.8 (0.2-0.8) Eosinophils # (Auto) 0.0 (0.0-0.4) Basophils # (Auto) 0.1 (0.0-0.1) Absolute Immature Granulocyte (auto 0.43 x10e3/uL (0-0.1) Differential Total Cells Counted 100 Neutrophils % (Manual) 99 % (40-74) Reactive Lymphocytes 1 Platelet Estimate Adequate Platelet Morphology Comment Normal Red Cell Morphology Comment Normal Prothrombin Time 14.2 seconds (11.9-14.5) Prothromb Time International Ratio 1.04 Activated Partial Thromboplast Time 29.4 seconds (23.8-35.5) Sodium Level 136 mmol/L (136-145) Potassium Level 3.8 mmol/L (3.5-5.1) Chloride Level 104 mmol/L (98-107) Carbon Dioxide Level 19 mmol/L (22-29) Anion Gap 16.8 mmol/L (8-16) Blood Urea Nitrogen 24 mg/dL (7-26) Creatinine 1.69 mg/dL (0.72-1.25) Estimat Glomerular Filtration Rate 39 ML/MIN (60-) BUN/Creatinine Ratio 14 (6-25) Glucose Level 187 mg/dL (74-118) Lactic Acid Level 1.4 mmol/L (0.5-2.0) Calcium Level 9.1 mg/dL (8.4-10.2) Total Bilirubin 1.2 mg/dL (0.2-1.2) Aspartate Amino Transf (AST/SGOT) 15 IU/L (5-34) Alanine Aminotransferase (ALT/SGPT) 14 IU/L (0-55) Alkaline Phosphatase 61 IU/L (40-150) Creatine Kinase 39 IU/L (30-200) Creatine Kinase MB 0.20 ng/mL (0-5.0) Troponin I 0.001 ng/mL (0-0.300) Total Protein 6.7 g/dL (6.5-8.1) Albumin 3.5 g/dL (3.5-5.0) Globulin 3.2 g/dL (2.3-3.5) Albumin/Globulin Ratio 1.1 (0.8-2.0) Laboratory Tests Test 12/12/19 20:23 White Blood Count 25.54 x10e3/uL (4.8-10.8) Red Blood Count 4.94 x10e6/uL (4.3-5.7) Hemoglobin 15.1 g/dL (14.0-18.0) Hematocrit 46.1 % (38.2-49.6) Mean Corpuscular Volume 93.3 fL (81-99) Mean Corpuscular Hemoglobin 30.6 pg (28-32) Mean Corpuscular Hemoglobin Concent 32.8 g/dL (31-35) Red Cell Distribution Width 13.9 % (11.7-14.4) Platelet Count 237 x10e3/uL (140-360) Neutrophils (%) (Auto) 88.8 % (38.7-80.0) Lymphocytes (%) (Auto) 2.2 % (18.0-39.1) Monocytes (%) (Auto) 7.0 % (4.4-11.3) Eosinophils (%) (Auto) 0.0 % (0.0-6.0) Basophils (%) (Auto) 0.3 % (0.0-1.0) Neutrophils # (Auto) 22.7 (2.1-6.9) Lymphocytes # (Auto) 0.6 (1.0-3.2) Monocytes # (Auto) 1.8 (0.2-0.8) Eosinophils # (Auto) 0.0 (0.0-0.4) Basophils # (Auto) 0.1 (0.0-0.1) Absolute Immature Granulocyte (auto 0.43 x10e3/uL (0-0.1) Lab results reviewed: Yes Imaging Imaging results reviewed: Yes Impressions Patient Name: NELLA DICK MR #: [id number] : 1940 Age/Sex: 79/M Req #: [id number] Adm Physician: Ordered by: HEIDE ACOSTA MD Report #: [id number] Location: ER Room/Bed: Procedure: [id number] CT/CT ABDOMEN/PELVIS WO Exam Date: 12/12/19 Exam Time: 2044 REPORT STATUS: Signed CT Abdomen and Pelvis without contrast INDICATION: Left flank pain, burning with urination, ^stone protocol, left flank pain ^20191212 ^2044 ^Y TECHNIQUE: Thin collimation axial images obtained from the diaphragm to the level of the pubic symphysis without nonionic intravenous contrast. Dose reduction techniques used: Automated exposure control, adjustment of the mAs and/or kVp according to patient size, standardized low-dose protocol, and/or iterative reconstruction technique. RADIATION DOSE: Total DLP: 424.75 mGy*cm Estimated effective dose: (DLP x 0.015 x size factor) mSv CTDIvol has been reviewed. It is below the limits set by the Radiation Protocol Committee (RPC). COMPARISON: CT abdomen/pelvis 12/09/2010. ABDOMEN FINDINGS: Lung Bases: Bibasilar linear subsegmental atelectasis. Heavy burden of coronary artery calcifications. Liver: Decreased attenuation suggestive of steatosis. No mass. Gallbladder: Absent. No ductal dilatation. Pancreas: Diffuse fatty atrophy without mass or ductal dilatation. Spleen: Normal size without mass. Adrenal Glands: No evidence for mass. Kidneys: Right: No renal calculus. No cortical mass or hydronephrosis Left: 2 mm calculus in the lower pole. The kidneys edematous with fullness of the collecting system. Mild perinephric inflammation. There is a vascular calcification in the posterior interpolar region measuring 4 mm. No cortical mass. Lymph Nodes: No lymphadenopathy. Aorta: Normal in diameter with scattered calcifications PELVIS FINDINGS: Bowel: Stomach: Normal. Small Bowel: Normal in caliber with normal wall thickness. Large Bowel: Diverticulosis coli. No associated inflammation. Appendix: Normal. Bladder: Circumferential mural thickening. No intraluminal calculi. Ureters: The left ureter is mildly distended without calculus. There is mild left periureteric inflammation. The right ureter is normal. The prostate gland is not enlarged. Seminal vesicles are normal. Peritoneum/retroperitoneum: No free fluid or fluid collection. Bones: No focal osseous lesions. Trace anterolisthesis of L4 on L5. IMPRESSION: 1. Left renal edema, mild hydroureteronephrosis and perinephric inflammation. No evidence of obstructing calculus. A recently passed stone cannot be excluded. Punctate calcification in the left kidney. 2. Diverticulosis coli. No evidence for bowel obstruction or inflammation. 3. Circumferential bladder wall thickening is not specific. Assessment of bladder function is recommended. No CT evidence of prostatomegaly. 4. Mild steatosis. 5. Mild bibasilar atelectasis. Signed by: Dr. Glenny Irby MD on 12/12/2019 10:43 PM Dictated By: GLENNY IRBY MD 42 Transcribed By: HALINA on 12/12/192242 Procedure: [id number] DX/CHEST SINGLE (PORTABLE) Exam Date: 12/12/19 Exam Time: 2039 REPORT STATUS: Signed EXAMINATION: CHEST SINGLE (PORTABLE) COMPARISON: None INDICATION: Fever, flank pain, and pain with urination ^Y ^fever ^[id number] ^2039 ^Y DISCUSSION: Frontal view of the chest obtained at 4 hours. HEART AND MEDIASTINUM: The cardiomediastinal silhouette is unremarkable. LINES: None. LUNGS/PLEURA: Right lower lobe discoid appearing airspace opacity. Minimal left basilar atelectasis. Vascular markings are normal. No pleural effusion or pneumothorax. BONES AND SOFT TISSUES: No focal osseous lesion. The soft tissues are normal. IMPRESSION: Right basilar airspace opacity may represent atelectasis or pneumonia. Recommend correlation with PA and lateral chest x-ray if clinically feasible. Signed by: Dr. 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 Assessment & Plan Assessment & Plan Final Impression: (1) ACUTE PYELONEPHRITIS (2) SEPSIS, UNSPECIFIED ORGANISM Assessment & Plan Patient has a fever chills left flank pain and dysuria since yesterday. CBC, CMP, EKG, cardiac enzymes, PT PTT, chest x-ray, blood cultures, UA, urine culture, lactic acid, CT abdomen and pelvis ordered to eval for sepsis, UTI, electrolyte abnormality, leukocytosis, kidney stone, pneumonia. At 8:20 PM when I evaluated patient I determine patient is most likely septic. T herefore sepsis time will be 8:20 PM SIRS criteria met white count 25,000 MAXIMUM TEMPERATURE 101.3. Initial lactic acid 1.4. Cefepime 2 g IV ordered Patient found to have pyelonephritis patient will be admitted for IV antibiotics. I spoke with Dr. Verma he states place patient to inpatient stat us. Depart Disposition: ADMITTED Last Vital Signs Date Time Temp Pulse Resp B/P (MAP) Pulse Ox O2 Delivery O2 Flow Rate FiO2 12/12/19 20:11 100.3 89 16 102/62 97 Home Meds Reported Medications Pantoprazole Sodium* (PROTONIX) 40 Mg Tablet., 40 MG PO DAILY, TAB 10/30/15 Meloxicam (MELOXICAM) 7.5 Mg Tablet, 7.5 MG PO DAILY, #30 TAB 05/22/15 Hydroxychloroquine Sulfate (HYDROXYCHLOROQUINE SULFATE) 200 Mg Tablet, 200 MG PO BID 05/22/15 Lisinopril (LISINOPRIL) 10 Mg Tablet, 10 MG PO DAILY, #30 TAB 05/22/15 Hydrochlorothiazide (HYDROCHLOROTHIAZIDE) 25 Mg Tablet, 25 MG PO DAILY, #30 TAB 05/22/15 Atorvastatin Calcium (ATORVASTATIN CALCIUM) 10 Mg Tablet, 10 MG PO 2100, #30 TAB 05/22/15 [Plavix] No Conflict Check, 75 MG PO DAILY 05/22/15 Donepezil Hcl (ARICEPT) 5 Mg Tablet, 10 MG PO DAILY, #60 TAB 05/22/15 Metoprolol Tartrate (METOPROLOL TARTRATE) 25 Mg Tablet, 25 MG PO DAILY, TAB 05/22/15 Medications in the ED Sodium Chloride 2,000 ml @ ud STK-MED ONCE .ROUTE ; Start 12/12/19 at 20:22; Stop 12/12/19 at 20:16; Status DC Sodium Chloride 1,000 ml @ 0 mls/hr Q0M ONCE IV Last administered on 12/12/19at 20:28; Admin Dose 999 MLS/HR; Start 12/12/19 at 20:15; Stop 12/12/19 at 20:20; Status DC Sodium Chloride 1,000 ml @ 0 mls/hr Q0M ONCE IV Last administered on 12/12/19at 20:28; Admin Dose 999 MLS/HR; Start 12/12/19 at 20:15; Stop 12/12/19 at 20:20; Status DC Acetaminophen 650 mg ONCE ONCE PO ; Start 12/12/19 at 20:15; Stop 12/12/19 at 20:29; Status DC Cefepime HCl 100 ml @ 100 mls/hr ONCE ONCE IV Last administered on 12/12/19at 20:28; Admin Dose 200 MLS/HR; Start 12/12/19 at 20:15; Stop 12/12/19 at 21:14 Sodium Chloride 500 ml @ 0 mls/hr Q0M ONCE IV ; Start 12/12/19 at 20:15; Stop 12/12/19 at 20:20; Status DC HEIDE ACOSTA MD Dec 12, 2019 20:47
[2019-12-12 20:51] LABS: ALBUMIN 3.5 g/dL (3.5-5.0); ALBUMIN/GLOBULIN RATIO 1.1 (0.8-2.0); ANION GAP 16.8 mmol/L (8-16); CALCIUM 9.1 mg/dL (8.4-10.2); CREATININE, SERUM 1.69 mg/dL (0.72-1.25); POTASSIUM 3.8 mmol/L (3.5-5.1)
[2019-12-12 20:58] LABS: CREATINE KINASE MB 0.2 ng/mL (0-5.0)
[2019-12-12 21:26] LABS: CLARITY,URINE CLOUDY (CLEAR); COLOR,URINE STRAW (YELLOW); LEUKOCYTE ESTERASE ,URINE SMALL (NEGATIVE); NITRITE,URINE POSITIVE (NEGATIVE); PROTEIN,URINE DIPSTICK 2+ (NEGATIVE)
[2019-12-12 21:27] LABS: BILIRUBIN,URINE NEGATIVE (NEGATIVE); KETONES,URINE 2+ (NEGATIVE); URINE UROBILINOGEN 0.2 mg/dL (0.2 - 1)
[2019-12-12 21:36] LABS: NEUTROPHILS % (MANUAL) 99 % (40-74); PLATELET ESTIMATE ADEQUATE; PLATELET MORPHOLOGY COMMENT NORMAL; RBC MORPHOLOGY COMMENT NORMAL
[2019-12-12 21:37] LABS: BACTERIA,URINE MODERATE /HPF; WBC,URINE (MAN) 21-50 /HPF (0-5)
[2019-12-12] MEDS: SODIUM CHLORIDE 0.9% 1000ML 1,000 ML IV SCH (21:41)
--- NOTE | 2019-12-12 22:40 | Diagnostic Imaging Report ---
EXAMINATION: CHEST SINGLE (PORTABLE) COMPARISON: None INDICATION: Fever, flank pain, and pain with urination ^Y ^fever ^20191212 ^2039 ^Y DISCUSSION: Frontal view of the chest obtained at 2043 hours. HEART AND MEDIASTINUM: The cardiomediastinal silhouette is unremarkable. LINES: None. LUNGS/PLEURA: Right lower lobe discoid appearing airspace opacity. Minimal left basilar atelectasis. Vascular markings are normal. No pleural effusion or pneumothorax. BONES AND SOFT TISSUES: No focal osseous lesion. The soft tissues are normal. IMPRESSION: Right basilar airspace opacity may represent atelectasis or pneumonia. Recommend correlation with PA and lateral chest x-ray if clinically feasible. Signed by: Dr. Myke Irby MD on 12/12/2019 10:36 PM
--- NOTE | 2019-12-12 22:47 | Diagnostic Imaging Report ---
CT Abdomen and Pelvis without contrast INDICATION: Left flank pain, burning with urination, ^stone protocol, left flank pain ^20191212 ^2044 ^Y TECHNIQUE: Thin collimation axial images obtained from the diaphragm to the level of the pubic symphysis without nonionic intravenous contrast. Dose reduction techniques used: Automated exposure control, adjustment of the mAs and/or kVp according to patient size, standardized low-dose protocol, and/or iterative reconstruction technique. RADIATION DOSE: Total DLP: 424.75 mGy*cm Estimated effective dose: (DLP x 0.015 x size factor) mSv CTDIvol has been reviewed. It is below the limits set by the Radiation Protocol Committee (RPC). COMPARISON: CT abdomen/pelvis 12/09/2010. ABDOMEN FINDINGS: Lung Bases: Bibasilar linear subsegmental atelectasis. Heavy burden of coronary artery calcifications. Liver: Decreased attenuation suggestive of steatosis. No mass. Gallbladder: Absent. No ductal dilatation. Pancreas: Diffuse fatty atrophy without mass or ductal dilatation. Spleen: Normal size without mass. Adrenal Glands: No evidence for mass. Kidneys: Right: No renal calculus. No cortical mass or hydronephrosis Left: 2 mm calculus in the lower pole. The kidneys edematous with fullness of the collecting system. Mild perinephric inflammation. There is a vascular calcification in the posterior interpolar region measuring 4 mm. No cortical mass. Lymph Nodes: No lymphadenopathy. Aorta: Normal in diameter with scattered calcifications PELVIS FINDINGS: Bowel: Stomach: Normal. Small Bowel: Normal in caliber with normal wall thickness. Large Bowel: Diverticulosis coli. No associated inflammation. Appendix: Normal. Bladder: Circumferential mural thickening. No intraluminal calculi. Ureters: The left ureter is mildly distended without calculus. There is mild left periureteric inflammation. The right ureter is normal. The prostate gland is not enlarged. Seminal vesicles are normal. Peritoneum/retroperitoneum: No free fluid or fluid collection. Bones: No focal osseous lesions. Trace anterolisthesis of L4 on L5. IMPRESSION: 1. Left renal edema, mild hydroureteronephrosis and perinephric inflammation. No evidence of obstructing calculus. A recently passed stone cannot be excluded. Punctate calcification in the left kidney. 2. Diverticulosis coli. No evidence for bowel obstruction or inflammation. 3. Circumferential bladder wall thickening is not specific. Assessment of bladder function is recommended. No CT evidence of prostatomegaly. 4. Mild steatosis. 5. Mild bibasilar atelectasis. Signed by: Dr. Myke Irby MD on 12/12/2019 10:43 PM
[2019-12-12] MEDS ORDERED: ONDANSETRON HCL INJ 2MG/ML 2ML 2 MG/ML VIAL IV PRN (23:30)
--- OUTSIDE RECORDS SUMMARY | 2019-12-12 23:54 | XMS REPORT | Continuity of Care Document ---
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 [place] M79.671 - PAIN IN RIGHT FOOT A ctive 09/04/2015 [facility] 562.11 - DIVERTICULITIS Active 02/25/2015 [facility] Limitation of activities due to disability 01/03/[address] [facility] [place] Stiffness of unspecified joint, not else where classified 01/03/[address] 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 Active Problem [facility] [...] Active Problem 03/27/2019 Aranza Nicholas Atherosclerosis of [place] coronary arter y of [place] heart with angina pectoris Active Problem 03/27/2019 Aranza Nicholas Abnormal electrocardiogram Act viky Problem Aranza Nicholas Arteriosclerosis of both carotid arteries Active Problem 03/27/2019 Aranza Nicholas Nonrheumatic mitral (valve) insufficiency Active Problem [...] disease) Active Problem Aranza Nicholas Atherosclerosis of [place] arteries of ex tremity with intermittent claudication Active Problem 03/27/2019 Aranza Nicholas Shortness of breath Active Problem 03/27/2019 Aranza Nicholas Alzheimer Disease Active 08/07/2013 [facility] Coronary Artery Stenosis Active 08/07/2013 [facility] Essential Hypertension Active 08/07/2013 [facility] Prostate Cancer Active 08/07/2013 [facility] Rheumatoid Arthritis Active 08/07/2013 [facility] LUMBAGO WITH SCIATICA, RIGHT SIDE Active [facility] [place] LOW BACK PAIN Active [facility] [place] MUSCLE WEAKNESS (GENERALIZED) Active [facility] [place] LIMITATION OF ACTIVITIES DUE TO DISABILI Active [facility] [place] STIFFNESS OF UNSPECIFIED JOINT, NOT ELSE Active [facility] [place] Medications Medication Details Route Status Patient Instructions [...] Active 1000 MCG/ML Orally once a week [place] [facility] Leflunomide 1 tablet Orally Active 20 MG Or[facility] Lisin[facility] 1 tablet Orally Active 10 MG Orally Once a day [facility] Pravastatin Sodium 1 tablet Orally Active 40 MG Orally Once a day [facility] Donepezil Hydrochloride 1 tabl et at bedtime Orally Active 10 MG Orally Once a day [place] [facility] Hydrochlorothiazide 1 tablet i n the morning Orally Active 25 MG Orally Three times a Week [place] [facility] Protonix 1 tablet Orally Active 40 MG Orally Once a day [facility] Pro PredniSONE 1 tablet Orally Active 5 MG Orally Once a day [facility] Pro Plavix 1 tablet Orally Active 75 MG Orally Once a day [facility] Metoprolol Tartrate 1 tablet w ith food Orally Active 25 MG Orally Twice a day [place] [facility] Vitamin D (Ergocalciferol) 1 c apsule Orally Active 73371 UNIT Orally once a week [place] Esteban Hardiner Hydroxychloroquine Sulfate 1 t ablet with food or milk Orally Active 200 MG Orally bid [facility] Esteban Hardiner Hydroxychloroquine Sulfate 1 t ablet with food or milk Orally Active 200 MG Orally bid [place] Esteban Hardiner Protonix 40 MG Oral Packet (A ctive) Active [facility] Plavix 75 MG Oral Tablet (Act viky) Active [facility] Lisinopril 10 MG Oral Tablet (Active) Active [facility] Lipitor 10 MG Oral Tablet (Ac tive) Active [facility] Meloxicam 15 MG Oral Tablet ( Active) Active [facility] Hydroxychloroquine Sulfate 200 MG Oral Tablet (Active) Active [facility] Furosemide 20 MG Oral Tablet (Active) Active [facility] Esgic CAPS (Active) Active [facility] Famotidine TABS (Active) Active [facility] Folic Acid TABS (Active) Active [facility] Multi Vitamin/Minerals Oral Tablet (Active) Active [facility] MTX Support Oral Tablet (Acti ve) Active [facility] Protonix 40 MG Oral Tablet [...] clinically. James Lynne MD On 12/12/2019 14:02:57; [id number] Radiation Dose CTDIVOL = 0 (mGy): DLP [...] inflammation. 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 History of cholecystectomy. ADDITIONAL [...] is seen. 2. Status post cholecystectomy. 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 Dorsal and [...] t he bilateral ankles and feet. 09/07/2015 [facility] Pelvis Limited US EXAM: US ABD OMEN [...] abdomen and pelvis should be considered. 02/27/2015 [facility] Abdomen complete US EXAM: US A BDOMEN [...] abdomen and pelvis should be considered. 02/27/2015 [facility] Consultation Notes No Data Provided for This [...] Pro Diastolic (mm Hg) 74 05/16/2019 [facility] Systolic (mm Hg) 112 05/16/2019 [facility] [...] ADM Date DC Date Status Source AUDIT [id number] 04/05/2013 04/05/2013 [facility] Adolph REEVES zoya: LULU MUNOZ, Status: Pen, Time: 1:15 PM [id number] 04/10/20 13 04/05/2013 [facility] AUDIT [id number] 08/07/2013 08/07/2013 [facility] Adolph REEVES zoya: LULU MUNOZ, Status: Basim, Time: 1:15 PM [id number] 12/04/19 14 08/07/2013 [facility] [id number] 04 Lulu Munoz 02/27/2015 02/28/2015 [facility] [place] [facility] [id number] 05 Lulu Munoz 09/07/2015 09/08/2015 [facility] [place] [facility] [id number] Lulu Munoz 12/02/2016 01/01/2017 [facility] [place] [facility] [id number] Lulu Munoz 08/06/2019 08/07/2019 [facility] [place] [...] Currently (Active) Never A Smoker (Active) 08/07/2013 [facility] Family History Value Date S ource Paternal history of Lung Cancer (V16.1); (Active) Maternal history of Alzheimer Disease (Active) 08/07/2013 [facility] Advance Directives Order Name Results Value Date Source Advance Directives Advance Dir ectives No Advance Directives available. 08/07/2013 [facility] Advance Directives Advance Dir ectives No Advance Directives available. 04/05/2013 [facility] Functional Status No Data Provided for This Section
--- OUTSIDE RECORDS SUMMARY | 2019-12-12 23:55 | XMS REPORT | Continuity of Care Document ---
Author Author [facility] t Organization [facility] Address [address] [place] [address] Phone Unavailable Care Team Providers Care Charge Nurse Name Role Phone Patrizia ACOSTA Attphys Unavailable Suleiman Munoz Attphys LUTHER OLIVIA Attphys Unavailable Problems Condition Name Condition Details Condition Category Status Onset Date Resolution Date Last Treatment Date Treating Clinician Comments Source LBP W/SCIATICA LBP W/SCIATICA Active 11/17/2016 [facility] [place] Diagnosis Active 2016-11-17 12:53:00 2016-12-20 11:39:00 Ewa Almaraz M79.671 - PAIN IN RIGHT FOOT M 79.671 - PAIN IN RIGHT FOOT Active 09/04/2015 [facility] Active 2015-09-04 00:0 1:00 2015-09-07 09:27:00 [facility] 562.11 - DIVERTICULITIS 562. 11 - DIVERTICULITIS Active 02/25/2015 [facility] Diagnosis Active 2015-02-25 00:01:00 2015-03-05 05:49:00 Ewa Almaraz Limitation of activities due to disability Limitation of activities due to disability 01/03/2017 [facility] [place] Problem 2017-01-03 00:04:58 [facility] [place] Stiffness of unspecified joint, not elsewhere classifi ed Stiffness of unspecified joint, not elsewhere classified 01/03/2017 [facility] [place] Problem 2017-01-03 00:04:58 [facility] Osteopenia Oste openia Active Problem 08/22/2019 Esteban Pro Problem Active 2019-08-22 03:47:50 [facility] Fatigue Fati jayda Active Problem 08/22/2019 Esteban Pro Problem Active 2019-08-22 03:47:50 [facility] Shoulder pain, left Shou lder pain, left Active Problem 08/22/2019 Esteban Pro Problem Active 2019-08-22 03:47:50 Ewa Almaraz 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 rheumatoid factor, multip le sites 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 rheumatoid factor, multiple sites Active Problem 08/22/2019 Esteban Pro Problem Active 2019-08-22 03:47:50 [facility] Other mcfp (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 Other mcfp (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 Active Problem 08/22/2019 Esteban Hardiner Problem Ac tive 2019-08-22 03:47:50 E[facility] frank Back pain Back pain Active Problem 08/22/2019 Esteban Pro Problem Active 2019-08-22 03:47:50 [facility] 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 Active Problem 08/22/2019 Esteb[facility] Pro Problem Active 2019-08-22 03:47:50 [facility] Low vitamin D level Low vitamin D level Active Problem 08/22/2019 Esteban Pro Problem Active 2019-08-22 03:47:50 Ewa Almaraz Pain in right shoulder Pain in right shoulder Active Problem 08/22/2019 Esteban Pro Problem Active 2019-08-22 03 :47:50 [facility] Rotator cuff tear, right Rota tor cuff tear, right Active Problem 08/22/2019 Esteban Pro Problem Active 2019-08-22 03 :47:50 [facility] Leg edema, left Leg edema, left Active Problem 03/27/2019 Aranza [place] Jorjecristofer Problem Active 2019-03-27 02:45:00 [facility] Right arm numbness Righ t arm numbness Active Problem 03/27/2019 Mohamed O Jorjecristofer Problem Active 2019-03-27 02:45:00 [facility] Exertional dyspnea Exer tional dyspnea Active Problem 03/27/2019 Lissethamed O Cristopher Problem Active 2019-03-27 02:45:00 [facility] Encounter for pre-operative cardiovascular clearance Encounter for pre-operative cardiovascular clearance Active Problem 03/27/2019 Mohamed [place] Nicholas Problem Active 2019-03-27 02:45:00 [facility] Atherosclerosis of three affiliated coronary artery of three affiliated he art with angina pectoris Atherosclerosis of three affiliated coronary artery of three affiliated heart with angina pectoris Active Problem 03/27/2019 Aranza [place] Nicholas Problem A ctive 2019-03-27 02:45:00 [facility] Abnormal electrocardiogram Abn ormal electrocardiogram Active Problem 03/27/2019 Mohamed O Cristopher Problem Active 2019-03-27 02:45:00 [facility] Arteriosclerosis of both carotid arteries Arteriosclerosis of both carotid arteries Active Problem 03/27/2019 Aranza Nicholas Problem Active 2019-03-27 02:45:00 [facility] Nonrheumatic mitral (valve) insufficiency Nonrheumatic mitral (valve) insufficiency Active Problem 03/27/2019 Aranza Nicholas Problem Active 2019-03-27 02:45:00 [facility] 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 Active Problem 03/27/2019 Aranza Nicholas Problem Active 2019-03-27 02:45:00 [facility] LVH (left ventricular hypertrophy) due to hypertensive disease LVH (left ventricular hypertrophy) due to hypertensive disease Active Problem 03/27/2019 Aranza Nicholas Problem Active 2019-03-27 02:45:0 0 [facility] Essential hypertension Esse ntial hypertension Active Problem 03/27/2019 Aranza Nicholas Problem Active 28-03-18 02:45:00 [facility] Abnormal stress test Abno rmal stress test Active Problem 03/27/2019 Aranza Nicholas Problem Active 2019-03-27 02:45:00 [facility] Stented coronary artery Sten yamile coronary artery Active Problem 03/27/2019 Aranza Nicholas Problem Active 28-03-18 02:45:00 [facility] Former smoker Form er smoker Active Problem 03/27/2019 Aranza Nicholas Problem Active 2019-03-27 02:45:00 [facility] Pure hypercholesterolemia Pure hypercholesterolemia Active Problem 03/27/2019 Aranza Nicholas Problem Active 28-03-18 02:45:00 [facility] CAD (coronary artery disease) CAD (coronary artery disease) Active Problem 03/27/2019 Aranza Nicholas Problem Active 2019-03-27 02:45:00 [facility] Atherosclerosis of three affiliated arteries of extremity with i ntermittent claudication Atherosclerosis of three affiliated arteries of extremity with intermittent claudication Active Problem 03/27/2019 Aranza Simmonsdi Problem Active 2019-03-27 02:45:00 [facility] Shortness of breath Shor tness of breath Active Problem 03/27/2019 Aranza Nicholas Problem Active 2019-03-27 02:45:00 [facility] Alzheimer Disease Alzh eimer Disease Active 08/07/2013 [facility] Problem Active 2013-08-07 19:51:41 [facility] Coronary Artery Stenosis Olamide nary Artery Stenosis Active 08/07/2013 [facility] Problem Active 2013-08-07 19:51: 41 [facility] Essential Hypertension Esse ntial Hypertension Active 08/07/2013 [facility] Problem Active 2013-08-07 19:51:41 [facility] Prostate Cancer Pros santiago Cancer Active 08/07/2013 [facility] Problem Active 2013-08-07 19:51:41 [facility] Rheumatoid Arthritis Rheu matoid Arthritis Active 08/07/2013 [facility] Problem Active 2013-08-07 19:51:41 [facility] LUMBAGO WITH SCIATICA, RIGHT SIDE LUMBAGO WITH SCIATICA, RIGHT SIDE Active [facility] [place] Diagnosis Active 2016 11:39:00 [facility] LOW BACK PAIN LOW BACK PAIN Active [facility] [place] Diagnosis Active 2016-12-20 11:39:00 Ca paddy Almaraz MUSCLE WEAKNESS (GENERALIZED) MUSCLE WEAKNESS (GENERALIZED) Active [facility] [place] Diagnosis Active 201 01-12-13 11:39:00 [facility] LIMITATION OF ACTIVITIES DUE TO DISABILI LIMITATION OF ACTIVITIES DUE TO DISABILI Active [facility] [place] Diagnosis Active 2016-12-20 11:39:00 [facility] STIFFNESS OF UNSPECIFIED JOINT, NOT ELSE STIFFNESS OF UNSPECIFIED JOINT, NOT ELSE Active [facility] [place] Diagnosis Active 2016-12-20 11:39:00 [facility] Allergies, Adverse Reactions, Alerts Allergy Name Allergy Type Status Severity Reaction(s) Onset Date Inacti ve Date Treating Clinician Comments Source Sulfasalazine Sulfasalazine Active Info Not Available 7 00:00:00 [facility] Hydroxychloroquine Sulfate Hydroxychloroquine Sulfate Active worked but too expensive 2019-03-29 00:00:00 [facility] No Known Drug Allergies No Known Drug Allergies Active [facility] Social History Social Habit Start Date Stop Date Quantity Comments Source Social History 2013-08-07 19:51:41 2013-08-07 19:51:41 [facility] Medications Ordered Medication Name Filled Medication Name Start Date Stop Da te Current Medication? Ordering Clinician Indication Dosage Frequency Signature (SIG) Comments Components Source Lisinopril 2019-05-18 03:45:39 Yes Watson Pro 1 tablet [facility] Pravastatin Sodium 2019-05-18 03:45:39 Yes Watson Hardiner 1 tablet [facility] Donepezil Hydrochloride 2019-05-18 03:45:39 Yes Watson Lloyd aller 1 tablet at bedtime [facility] Hydrochlorothiazide 2019-05-18 03:45:39 Yes Watson Hardine r 1 tablet in the morning [facility] Protonix 2019-05-18 03:45:39 Yes Watson Hardiner 1 tablet [facility] Plavix 2019-05-18 03:45:39 Yes Watson Hardiner 1 ta blet [facility] Metoprolol Tartrate 2019-05-18 03:45:39 Yes Watson Coronado r 1 tablet with food [facility] Hydroxychloroquine Sulfate 2019-05-18 03:45:39 Yes Tracy Hardiner 1 tablet with food or milk [facility] Hydrochlorothiazide 2019-03-27 02:45:00 Yes Aranza Recinosoudi 1 tablet [facility] Cyanocobalamin 2018-12-27 02:45:49 Yes Watson Pro as directed [facility] Vitamin D (Ergocalciferol) 2018-12-27 02:45:49 Yes Tracy Hardiner 1 capsule [facility] PredniSONE 2018-12-25 00:00:00 Yes Watson Hardiner 1 tablet [facility] PredniSONE 2018-09-27 02:46:41 Yes Wajeeha Cheryl 1 tablet [facility] Hydroxychloroquine Sulfate 2018-09-27 02:46:41 Yes Wajee briscoe Cheryl 1 tablet with food or milk [facility] PredniSONE 2018-06-05 00:00:00 Yes Wajeeha Cheryl 1 tablet [facility] Hydroxychloroquine Sulfate 2018-05-24 00:00:00 Yes Wajee briscoe Cheryl 1 tablet with food or milk [facility] PredniSONE 2018-05-24 00:00:00 Yes Wajeeha Cheryl 1 tablet [facility] Leflunomide 2018-02-09 02:49:15 Yes Wajeeha Cheryl 1 tablet [facility] Hydroxychloroquine Sulfate 2018-02-07 00:00:00 Yes Wajee briscoe Cheryl 1 tablet with food or milk [facility] Plavix 75 MG Oral Tablet 2013-08-07 19:51:41 Yes (Active) [facility] Lisinopril 10 MG Oral Tablet 2013-08-07 19:51:41 [...] Value Comments Source Weight 2019-05-16 15:30:00 [facility] Height 2019-05-16 15:30:00 [facility] Temperature Oral (F) 2019-05-16 15:30:00 98 F [facility] Heart Rate 2019-05-16 15:30:00 [facility] Diastolic (mm Hg) 2019-05-16 15:30:00 [facility] Systolic (mm Hg) 2019-05-16 15:30:00 [facility] Weight 2019-03-29 15:45:00 [facility] Height 2019-03-29 15:45:00 [facility] Temperature Oral (F) 2019-03-29 15:45:00 98.0 F [facility] Heart Rate 2019-03-29 15:45:00 [facility] Diastolic (mm Hg) 2019-03-29 15:45:00 [facility] Systolic (mm Hg) 2019-03-29 15:45:00 [facility] Weight 2018-12-25 14:45:00 [facility] Height 2018-12-25 14:45:00 [facility] Temperature Oral (F) 2018-12-25 14:45:00 98.2 F [facility] Heart Rate 2018-12-25 14:45:00 [facility] Diastolic (mm Hg) 2018-12-25 14:45:00 [facility] Systolic (mm Hg) 2018-12-25 14:45:00 [facility] Weight 2018-09-24 14:00:00 [facility] Height 2018-09-24 14:00:00 [facility] Temperature Oral (F) 2018-09-24 14:00:00 97.9 F [facility] Heart Rate 2018-09-24 14:00:00 [facility] Diastolic (mm Hg) 2018-09-24 14:00:00 [facility] Systolic (mm Hg) 2018-09-24 14:00:00 [facility] Weight 2018-06-26 14:30:00 [facility] Height 2018-06-26 14:30:00 [facility] Temperature Oral (F) 2018-06-26 14:30:00 96.1 F [facility] Heart Rate 2018-06-26 14:30:00 [facility] Diastolic (mm Hg) 2018-06-26 14:30:00 [facility] Systolic (mm Hg) 2018-06-26 14:30:00 [facility] Weight 2018-06-08 15:15:00 [facility] Height 2018-06-08 15:15:00 [facility] Temperature Oral (F) 2018-06-08 15:15:00 97.6 F [facility] Heart Rate 2018-06-08 15:15:00 [facility] Diastolic (mm Hg) 2018-06-08 15:15:00 [facility] Systolic (mm Hg) 2018-06-08 15:15:00 [facility] Weight 2018-02-12 15:45:00 [facility] Height 2018-02-12 15:45:00 [facility] Temperature Oral (F) 2018-02-12 15:45:00 96.3 F [facility] Heart Rate 2018-02-12 15:45:00 [facility] Diastolic (mm Hg) 2018-02-12 15:45:00 [facility] Systolic (mm Hg) 2018-02-12 15:45:00 [facility] Weight 2018-02-07 13:15:00 [facility] Height 2018-02-07 13:15:00 [facility] Temperature Oral (F) 2018-02-07 13:15:00 98.1 F [facility] Heart Rate 2018-02-07 13:15:00 [facility] Diastolic (mm Hg) 2018-02-07 13:15:00 [facility] Systolic (mm Hg) 2018-02-07 13:15:00 [facility] Procedures This patient has no known procedures. Encounters Start Date/Time End Date[facility] Source 2019-08-21 12:47:00 2019-08-21 12:47:00 Outpatient MD BART Pacheco MD [place] [id number] VITALIY Pro MD 2019-08-06 10:36:00 2019-08-06 23:59:00 Outpatient Christopher Munoz MHOIB MHOIB [id number] 2019-05-16 09:30:00 2019-05-16 09:30:00 Outpatient Watson Pro MD PA [id number] VITALIY Pro MD 2019-03-29 10:45:00 2019-03-29 10:45:00 Outpatient Watson Pro MD [place] [id number] Esteban Pro MD 2019-03-25 16:34:00 2019-03-25 16:34:00 Outpatient Aranza Nicholas MD [place] [id number] [employer] 2018-12-25 09:45:00 2018-12-25 09:45:00 Outpatient Watson Pro MD PA [id number] VITALIY Pro MD 2018-12-24 15:11:00 2018-12-24 15:11:00 Outpatient Watson Pro MD PA [id number] VIATLIY Pro MD 2018-12-24 08:12:00 2018-12-24 08:12:00 Outpatient Watson Pro MD PA [id number] Esteban Pro MD 2018-09-24 09:46:00 2018-09-24 09:46:00 Outpatient Watson Pro MD PA [id number] Esteban Pro MD 2018-09-24 09:00:00 2018-09-24 09:00:00 Outpatient Watson Pro MD PA [id number] Esteban Pro MD 2018-06-26 08:30:00 2018-06-26 08:30:00 Outpatient Watson Pro MD PA [id number] Esteban Pro MD 2018-06-25 10:16:00 2018-06-25 10:16:00 Outpatient Watson Pro MD PA [id number] Esteban Pro MD 2018-06-22 10:48:00 2018-06-22 10:48:00 Outpatient Watson Pro MD PA [id number] Esteban Pro MD 2018-06-08 10:05:00 2018-06-08 10:05:00 Outpatient Watson ARRIAGA [id number] Esteban Pro MD 2018-06-08 09:15:00 2018-06-08 09:15:00 Outpatient Watson Pro MD PA [id number] Esteban Pro MD 2018-06-07 14:26:00 2018-06-07 14:26:00 Outpatient Watson Pro MD PA [id number] Esteban Pro MD 2018-06-04 16:28:00 2018-06-04 16:28:00 Outpatient Watson ARRIAGA [id number] Esteban Pro MD 2018-05-24 12:57:00 2018-05-24 12:57:00 Outpatient Watson Pro MD PA [id number] Esteban Pro MD 2018-02-12 10:45:00 2018-02-12 10:45:00 Outpatient Watson ARRIAGA [id number] Esteban Pro MD 2018-02-07 08:15:00 2018-02-07 08:15:00 Outpatient Watson ARRIAGA [id number] Esteabn Pro MD 2017-09-21 16:49:00 2017-09-21 16:49:00 Outpatient Watson ARRIAGA [id number] Esteban Pro MD 2016-12-02 08:25:00 2016-12-31 23:59:00 Outpatient Ismael Munoz [id number] 2015-09-07 09:16:00 2015-09-07 23:59:00 Outpatient Christopher Munoz OIB MHOIB [id number] 2015-02-27 10:44:00 2015-02-27 23:59:00 Outpatient Christopher Munoz OIB MHOIB [id number] 2013-08-07 13:51:41 2013-08-07 13:51:41 Outpatient [facility] IE [id number] 2013-04-05 07:45:34 2013-04-05 07:45:33 Outpatient [facility] IE [id number] Results Test Description Test Time Test Comments Results Result Comments Source CHEST SINGLE (PORTABLE) 2019-12-12 22:35:00 [place] [address] Patient Name: NELLA DICK MR #: [id number] : 1940 Age/Sex: 79/M Req #: [id number] Adm Physician: Ordered by: HEIDE ACOSTA MD Report #: [id number] Location: ER Room/Bed: Procedure: DX/CHEST SINGLE (PORTABLE) Exam Date: 12/12/19 Exam Time: 2039 REPORT STATUS: Signed EXAMINATION: CHEST SINGLE (PORTABLE) COMPARISON: None INDICATION: Fever, flank pain, and pain with urination Y fever 20191212 Y DISCUSSION: Frontal view of the chest obtained at 2043 hours. HEART AND MEDIASTINUM: The cardiomediastinal silhouette is unremarkable. LINES: None. LUNGS/PLEURA: Right lower lobe discoid appearing airspace opacity. Minimal left basilar atelectasis. Vascular markings are normal. No pleural effusion or pneumothorax. BONES AND SOFT TISSUES: No focal osseous lesion. The soft tissues are normal. IMPRESSION: Right basilar airspace opacity may represent atelectasis or pneumonia. Recommend correlation with PA and lateral chest x-ray if clinically feasible. Signed by: Dr. Glenny Sanon MD on 12/12/2019 10:36 PM Dictated By: GLENNY SANON MD 35 Transcribed By: HALINA on 12/12/192235 COPY TO: HEIDE ACOSTA MD CT ABDOMEN/PELVIS WO 2019-12-12 21:45:00 [place] [address] Patient Name: NELLA DICK MR #: [id number] : 1940 Age/Sex: 79/M Req #: [id number] Adm Physician: Ordered by: HEIDE ACOSTA MD Report #: [id number] Location: ER Room/Bed: Procedure: [id number] CT/CT ABDOMEN/PELVIS WO Exam Date: 12/12/19 Exam Time: 2044 REPORT STATUS: Signed CT Abdomen and Pelvis without contrast INDICATION: Left flank pain, burning with urination, stone protocol, left flank pain 20191212 Y TECHNIQUE: Thin collimation axial images obtained from the diaphragm to the level of the pubic symphysis without nonionic intravenous contrast. Dose reduction techniques used: Automated exposure control, adjustment of the mAs and/or kVp according to patient size, standardized low-dose protocol, and/or iterative reconstruction technique. RADIATION DOSE: Total DLP: 424.75 mGy*cm Estimated effective dose: (DLP x 0.015 x size factor) mSv CTDIvol has been reviewed. It is below the limits set by the Radiation Protocol Committee (RPC). COMPARISON: CT abdomen/pelvis 12/09/2010. ABDOMEN FINDINGS: Lung Bases: Bibasilar linear subsegmental atelectasis. Heavy burden of coronary artery calcifications. Liver: Decreased attenuation suggestive of steatosis. No mass. Gallbladder: Absent. No ductal dilatation. Pancreas: Diffuse fatty atrophy without mass or ductal dilatation. Spleen: Normal size without mass. Adrenal Glands: No evidence for mass. Kidneys: Right: No renal calculus. No cortical mass or hydronephrosis Left: 2 mm calculus in the lower pole. The kidneys edematous with fullness of the collecting system. Mild perinephric inflammation. There is a vascular calcification in the posterior interpolar region measuring 4 mm. No cortical mass. Lymph Nodes: No lymphadenopathy. Aorta: Normal in diameter with scattered calcifications PELVIS FINDINGS: Bowel: Stomach: Normal. Small Bowel: Normal in caliber with normal wall thickness. Large Bowel: Diverticulosis coli. No associated inflammation. Appendix: Normal. Bladder: Circumferential mural thickening. No intraluminal calculi. Ureters: The left ureter is mildly distended without calculus. There is mild left periureteric inflammation. The right ureter is normal. The prostate gland is not enlarged. Seminal vesicles are normal. Peritoneum/retroperitoneum: No free fluid or fluid collection. Bones: No focal osseous lesions. Trace anterolisthesis of L4 on L5. IMPRESSION: 1. Left renal edema, mild hydroureteronephrosis and perinephric inflammation. No evidence of obstructing calculus. A recently passed stone cannot be excluded. Punctate calcification in the left kidney. 2. Diverticulosis coli. No evidence for bowel obstruction or inflammation. 3. Circumferential bladder wall thickening is not specific. Assessment of bladder function is recommended. No CT evidence of prostatomegaly. 4. Mild steatosis. 5. Mild bibasilar atelectasis. Signed by: Dr. Glenny Sanon MD on 12/12/2019 10:43 PM Dictated By: GLENNY SANON MD Electronically Sign ed By: GLENNY SANON MD on 12/12/192242 Transcribed By: HALINA on 12/12/192242 COPY TO: HEIDE ACOSTA MD FOOT LEFT AP LAT [place] [address] Patient Name: NELLA DICK MR #: [id number] : 1940 Age/Sex: 77/M Req #: [id number] Adm Physician: Ordered by: LUTHER OLIVIA DPJigna Report #: [id number] Location: OR Room/Bed: Procedure: [id number] DX/FOOT LEFT AP LAT Exam Date: 06/28/17 [...] TO: LUTHER OLIVIA DPM CHEST 2 VIEWS [place] [address] Patient Name: NELLA DICK MR #: [id number] : 1940 Age/Sex: 77/M Req #: [id number] Adm Physician: Ordered by: LUTHER OLIVIA DPM Report #: [id number] Location: OR Room/Bed: Procedure: [id number] DX/CHEST 2 VIEWS Exam Date: 06/26/17 Exam [...] at 13:35 Dictated By: BLADIMIR DIAZ MD [id number] Transcribed By: DALILA on 06/26/17 1332 COPY TO: LUTHER OLIVIA DPM
[2019-12-13] MEDS: ACETAMINOPHEN 325 MG TAB PO PRN ×3 (00:31→21:32)
[2019-12-13] MEDS ORDERED: SODIUM CHLORIDE 0.9% 500ML 500 ML ONE (05:13)
[2019-12-13] MEDS ORDERED: SODIUM CHLORIDE 0.9% 500ML 500 ML IV ONE (05:15)
[2019-12-13] MEDS: SODIUM CHLORIDE 0.9% 1000ML 1,000 ML IV SCH ×3 (05:55→22:54)
[2019-12-13] MEDS: CEFEPIME 2 GM/NS 0.9% 100 ML 100 ML IV SCH ×3 (06:09→22:00)
[2019-12-13 06:10] LABS: BASOPHILS # (AUTO) 0.1 (0.0-0.1); BASOPHILS % 0.2 % (0.0-1.0); EOSINOPHILS % 0.1 % (0.0-6.0); HEMATOCRIT 38.9 % (38.2-49.6); HEMOGLOBIN 12.8 g/dL (14.0-18.0); LYMPHOCYTES # (AUTO) 0.5 (1.0-3.2); LYMPHOCYTES % 2.2 % (18.0-39.1); MEAN CORPUSCULAR HEMOGLOBIN 31.1 pg (28-32); MEAN CORPUSCULAR HGB CONC 32.9 g/dL (31-35); MEAN CORPUSCULAR VOLUME 94.6 fL (81-99); MONOCYTES # (AUTO) 1.4 (0.2-0.8); MONOCYTES % 6.3 % (4.4-11.3); NEUTROPHILS # (AUTO) 19.9 (2.1-6.9); NEUTROPHILS % 87.3 % (38.7-80.0); PLATELET COUNT 182 x10e3/uL (140-360); RED BLOOD COUNT 4.11 x10e6/uL (4.3-5.7)
[2019-12-13 06:55] LABS: ALANINE AMINOTRANSFERASE 28 IU/L (0-55); ALBUMIN 2.5 g/dL (3.5-5.0); ALKALINE PHOSPHATASE 50 IU/L (40-150); ANION GAP 10.5 mmol/L (8-16); BLOOD UREA NITROGEN 18 mg/dL (7-26); BUN/CREATININE RATIO 18 (6-25); CALCIUM 7.4 mg/dL (8.4-10.2); CARBON DIOXIDE 19 mmol/L (22-29); CHLORIDE 115 mmol/L (98-107); CREATININE, SERUM 1.01 mg/dL (0.72-1.25); EST GLOMERULAR FILTRATION RATE > 60 ML/MIN (60-); GLUCOSE 129 mg/dL (74-118); POTASSIUM 3.5 mmol/L (3.5-5.1); SODIUM 141 mmol/L (136-145)
--- NOTE | 2019-12-13 07:00 | NUR ---
received report from off going nurse. patient in room in bed. pending room assignment for admission. bed down call light in reach. will continue to monitor.
--- NOTE | 2019-12-13 16:30 | Consultation ---
DATE OF CONSULTATION: 12/13/2019 Cardiac Consultation REASON FOR CONSULTATION: Hypotension and the patient with known coronary artery disease and urosepsis. HISTORY: This gentleman is very well-known to me over the years. He is an 79-year-old gentleman, who is known with coronary artery disease, status post PCI; hypertension, hypercholesteremia, varicose vein, peripheral arterial vascular disease, and rheumatoid arthritis followed by Rheumatology. The patient came to my office because he is not doing very well. He said for some time he is having intermittent hematuria. For the last day or so, he is having fever and chills. We advised him to stop the Plavix. We advised him to go to see Dr. Justice here in his office. However, I told him if he is not feeling well, he need to go directly to emergency room, mainly if he starts spiking fever. The patient had more fever yesterday. He was not doing well. He came to this emergency room. He was hypotensive and is febrile. His WBCs were 25,000. Given antibiotics. Had urine culture and blood cultures, and admitted. His symptom seems to be of recent onset of for the last couple of days or less; it started with colicky pain, mainly in the left flank. He said he had some hematuria. He denied having any fever, any chills initially, but it seems yesterday start spiking very high fever and he was not feeling well as well as he was nauseated. Regarding his coronary artery status, the patient had PCI to the LAD in December 2015. He denied having any chest pain. He is on beta-casper and antiplatelet, and as I mentioned, we stopped his antiplatelet when he started having hematuria. Regarding his hypercholesteremia, he is not on statin because of myalgia and also denied by his insurance. Regarding his hypertension, he is taking his medication regularly. The patient also does have another problem, which is past history also of TURP in [address] Perry. CURRENT MEDICATIONS: Metoprolol 25 mg twice a day, lisinopril 10 mg a day, hydrochlorothiazide 25 mg a day, Aricept 10 mg a day, Protonix 40 mg a day. ALLERGIES: HE IS INTOLERANT TO ALL STATINS. PAST MEDICAL HISTORY: 1. Coronary artery disease, status post PCI to the LAD using 2.25 x 30 stent in December 2015. In 2009, he had PCI to the mid LAD using 3 x 15 Clean In Places Operator stent. 2. Hypertension. 3. Hypercholesteremia. 4. Varicose vein. 5. Peripheral arterial vascular disease. 6. Prostate problem. 7. Arthritis. 8. History of kidney stone. 9. Diverticulosis. 10. TURP in 2007 and repeat TURP in 2014. 11. Tonsillectomy. 12. Bilateral cataract surgery. 13. Cholecystectomy. 14. Left shoulder surgery. SOCIAL HISTORY: He is . He stopped smoking in 1983. He is non-alcohol drinker. REVIEW OF SYSTEMS: GENERAL: Fever and chills since yesterday. HEENT: No vision problem. No hearing problem. CARDIAC AND PULMONARY: Occasional left chest pain, vague in characteristic. GI: GERD history. No hematemesis. No melena. : Repeated frequency and sometimes incontinence since his prior TURP surgery. Recent hematuria and recent dysuria. MUSCULOSKELETAL: Several joints ache. Peripheral vascular claudication. NEUROLOGICAL: Unsteady gait and peripheral neuropathy symptoms. FAMILY HISTORY: Father at age 69 with complication of congestive heart failure. He was a smoker. Mother of Alzheimer's in her 90s. Six siblings, one sister with dementia. Six children, two sons and four daughters. PHYSICAL EXAMINATION: GENERAL: The patient seems to be better now. He told me he was feeling miserable earlier. VITAL SIGNS: His T-max is 100.4. His blood pressure on admission is in 90s, currently at 120/60; heart rate of 100, respiratory rate of 20. HEENT: Pupils are reactive. NECK: No elevation of jugular venous pulsation. No bruit. CHEST: Clear to auscultation and percussion. HEART: PMI 5th left intercostal space. Normal first and second heart sounds. ABDOMEN: Soft with good bowel sounds. There is mild tenderness in the left flank area. EXTREMITIES: No cyanosis, no clubbing, no edema. Decreased distal pulses. NEUROLOGIC: Awake, alert, and oriented. LABORATORY DATA: White blood cell count of 22,000, hemoglobin of 12.8, hematocrit 39%, and platelet count of 182,000. Sodium of 141, potassium 3.5, BUN of 18, creatinine of 1. Chest x-ray by report showed atelectatic changes. CT showed evidence of left pyelonephritis. IMPRESSION AND PLAN: 1. Acute left pyelonephritis. 2. Hypotension, secondary to urosepsis. 3. Coronary artery disease with stable angina. 4. Status post PCI. 5. Hypertension, currently hypotensive secondary to the infection and urosepsis. 6. Coronary artery disease, status post PCI to the LAD using 2.25 x 30 stent in December 2015. In 2009, he had PCI to the mid LAD using 3 x 15 Clean In Places Operator stent. 7. Hypertension. 8. Hypercholesteremia. 9. Varicose vein. 10. Peripheral arterial vascular disease. 11. Prostate problem. 12. Arthritis. 13. History of kidney stone. 14. Diverticulosis. 15. TURP in 2007 and repeat TURP in 2014. 16. Tonsillectomy. 17. Bilateral cataract surgery. 18. Cholecystectomy. 19. Left shoulder surgery. PLAN: IV fluid, antibiotics. Dr. Verma kindly will take care of the patient's medical problems. I will take the liberty to consult Dr. Perry. I will stop his antihypertensive medication. We will give him a small dose of beta-blockers. Would repeat his lab and will observe his volume status. IV fluid will be paramount in this patient for the time being. We will follow the patient's progression with you and would like to thank you for your kind referral. MD SERAFIN Ann/RIGOBERTO /[id number]
[2019-12-13] MEDS ORDERED: HYDRALAZINE HCL 20 MG/ML VIAL IV PRN (17:30)
[2019-12-13 21:00] VITALS: BP 102/63
[2019-12-13] MEDS: ATORVASTATIN 10 MG TAB PO SCH (21:00)
[2019-12-13 22:50] VITALS: BP 102/63
[2019-12-14] VITALS (8 sets, daily range): BP systolic 90–151; BP diastolic 51–86
[2019-12-14 05:22] LABS: BASOPHILS % 0.2 % (0.0-1.0); EOSINOPHILS # (AUTO) 0.1 (0.0-0.4); EOSINOPHILS % 0.4 % (0.0-6.0); HEMATOCRIT 38.4 % (38.2-49.6); HEMOGLOBIN 12.1 g/dL (14.0-18.0); LYMPHOCYTES # (AUTO) 0.6 (1.0-3.2); LYMPHOCYTES % 3.3 % (18.0-39.1); MEAN CORPUSCULAR HEMOGLOBIN 30.5 pg (28-32); MEAN CORPUSCULAR HGB CONC 31.5 g/dL (31-35); MEAN CORPUSCULAR VOLUME 96.7 fL (81-99); MONOCYTES # (AUTO) 1.3 (0.2-0.8); MONOCYTES % 7.5 % (4.4-11.3); NEUTROPHILS # (AUTO) 14.8 (2.1-6.9); NEUTROPHILS % 87.5 % (38.7-80.0); PLATELET COUNT 162 x10e3/uL (140-360); RED BLOOD COUNT 3.97 x10e6/uL (4.3-5.7); RED CELL DISTRIBUTION WIDTH 14.4 % (11.7-14.4)
[2019-12-14 05:50] LABS: ALANINE AMINOTRANSFERASE 21 IU/L (0-55); ALBUMIN 2.3 g/dL (3.5-5.0); ALBUMIN/GLOBULIN RATIO 0.8 (0.8-2.0); ALKALINE PHOSPHATASE 62 IU/L (40-150); ANION GAP 13.7 mmol/L (8-16); BLOOD UREA NITROGEN 16 mg/dL (7-26); BUN/CREATININE RATIO 19 (6-25); CALCIUM 7.8 mg/dL (8.4-10.2); CARBON DIOXIDE 15 mmol/L (22-29); CHLORIDE 115 mmol/L (98-107); CHOL/HDL RATIO 2.9 (3.9-4.7); CHOLESTEROL 93 MD/DL (0-199); CREATININE, SERUM 0.83 mg/dL (0.72-1.25); EST GLOMERULAR FILTRATION RATE > 60 ML/MIN (60-); GLUCOSE 123 mg/dL (74-118); HDL CHOLESTEROL 32 MG/DL (40-60); LDL CHOLESTEROL 41 MG/DL (60-130); POTASSIUM 3.7 mmol/L (3.5-5.1); SODIUM 140 mmol/L (136-145); TRIGLYCERIDES 100 MG/DL (0-149)
[2019-12-14 06:15] LABS: THYROID STIMULATING HORMONE 1.212 uIU/mL (0.350-4.940)
[2019-12-14] MEDS: CEFEPIME 2 GM/NS 0.9% 100 ML 100 ML IV SCH ×3 (06:21→21:10)
[2019-12-14] MEDS ORDERED: METOPROLOL TARTRATE 25 MG TAB PO SCH (09:15)
--- NOTE | 2019-12-14 09:53 | Consultation ---
DATE OF CONSULTATION: 12/13/2019 Dr. Emmanuel Perry dictating a consultation for Dr. Verma. REASON FOR CONSULTATION: Urosepsis and dysuria. HISTORY: This is an 79-year-old male who is admitted to the hospital because of fever, chills, dysuria, frequency, urgency, and low blood pressure-sepsis. The patient states that about two weeks ago, he started having some dysuria, started drinking some water. Called my office. He was told that the next appointment would be on 12/18/2019. He continued to drink water, tried to call his primary care physician. Apparently, the primary care physician was not there. He was waiting until the , but on the , which is the day of admission, he had to come to the emergency room with his son who brought him over because he had experienced some lightheadedness, some shortness of breath, and low blood pressure. Upon admission, the patient had a white blood cell count of 25.5 with urinalysis showing positive nitrites. CT scan did show left perinephric stranding suggesting some kind of inflammation of the kidney with also dilatation of the ureter to the bladder, but no stones. The bladder was also thickened. Obviously, his presentation is that of pyelonephritis with sepsis. The patient was started on cefepime in the emergency room and he is admitted to the hospital for IV antibiotics, IV fluids resuscitation, control of fever, and urine culture and sensitivity. PAST MEDICAL HISTORY: The patient has had dementia or early Alzheimer's for which he had been treated with Aricept. ALLERGIES: TO SULFA. MEDICATIONS: The patient takes atorvastatin, Plavix 75 mg, Protonix 40 mg, and Aricept 10 mg. The patient also occasionally uses Levitra. PAST GENITOURINARY HISTORY: The patient was diagnosed with prostate cancer in 2008 for which he had cryoablation. He had a cystoscopy and transurethral resection of the prostate on 12/08/2014. FAMILY HISTORY: Alzheimer's. SOCIAL HISTORY: He is . He has had two children. PHYSICAL EXAMINATION: Normal testicles. No hernias. Normal penis. He does have left flank pain and suprapubic discomfort. IMPRESSION: 1. Pyelonephritis. 2. Prostate cancer. RECOMMENDATION: The patient has been admitted to the hospital. He will require hospitalization with IV antibiotics for the next 3-5 days to await the culture reports. We will check to see the patient is able to empty his bladder well. I will ask the nurses to do a postvoid residual on him and call me with the results of his over 100. In the meantime, continue medication and continue diet as tolerated. Emmanuel Perry MD RRG/MODL /[id number] cc: Aranza Nicholas MD
[2019-12-14] MEDS: METOPROLOL TARTRATE 25 MG TAB PO SCH ×2 (09:55→20:34)
[2019-12-14] MEDS: CLOPIDOGREL BISULFATE 75 MG TAB PO SCH (09:55)
[2019-12-14] MEDS: PANTOPRAZOLE SOD 40 MG TABEC PO SCH (09:55)
[2019-12-14] MEDS: DONEPEZIL HCL 5 MG TAB PO SCH (09:55)
[2019-12-14] MEDS ORDERED: MAGNESIUM HYDROXIDE 30 ML UDC PO ONE (10:00)
--- NOTE | 2019-12-14 12:22 | NUR ---
Pt transferred to room [address] Perry and Art Rasmussen IRONER OR PRESSER agreed with transfer. Belongings with patient. Call to April Bear's phone message left.
[2019-12-14] MEDS: SODIUM CHLORIDE 0.9% 1000ML 1,000 ML IV SCH (14:47)
--- NOTE | 2019-12-14 16:28 | NUR ---
PATIENT UP IN BED. ALERT WITH NO DISTRESS, ON IV FLUIDS, CALL LIGHT IN REACH, KEEP MONITORING
--- NOTE | 2019-12-14 19:25 | NUR ---
Resumed care of patient. Patient awake and resting in bed, no s/s of distress at this time. Bed locked and in low position, side rails up x3, call light placed within reach. Patient instructed to call for assistance if needed, verbalized understanding. All safety measures in place. Will continue to monitor.
[2019-12-14] MEDS: ATORVASTATIN 10 MG TAB PO SCH (20:34)
[2019-12-15] VITALS (7 sets, daily range): BP systolic 118–148; BP diastolic 56–82
[2019-12-15] MEDS: SODIUM CHLORIDE 0.9% 1000ML 1,000 ML IV SCH (01:52)
[2019-12-15] MEDS: CEFEPIME 2 GM/NS 0.9% 100 ML 100 ML IV SCH ×3 (05:14→21:43)
[2019-12-15 06:23] LABS: BASOPHILS % 0.3 % (0.0-1.0); EOSINOPHILS # (AUTO) 0.2 (0.0-0.4); EOSINOPHILS % 1.3 % (0.0-6.0); HEMATOCRIT 36.7 % (38.2-49.6); HEMOGLOBIN 11.9 g/dL (14.0-18.0); LYMPHOCYTES # (AUTO) 0.7 (1.0-3.2); LYMPHOCYTES % 5.7 % (18.0-39.1); MEAN CORPUSCULAR HGB CONC 32.4 g/dL (31-35); MEAN CORPUSCULAR VOLUME 95.6 fL (81-99); MONOCYTES # (AUTO) 1.1 (0.2-0.8); MONOCYTES % 8.8 % (4.4-11.3); NEUTROPHILS # (AUTO) 10.6 (2.1-6.9); NEUTROPHILS % 83.2 % (38.7-80.0); PLATELET COUNT 186 x10e3/uL (140-360); RED BLOOD COUNT 3.84 x10e6/uL (4.3-5.7); RED CELL DISTRIBUTION WIDTH 13.9 % (11.7-14.4)
--- NOTE | 2019-12-15 06:52 | NUR ---
Bedside report given to day nurse. Patient awake and resting in bed, no s/s of distress at this time. All safety measures in place.
[2019-12-15 07:20] LABS: ALANINE AMINOTRANSFERASE 19 IU/L (0-55); ALBUMIN 2.3 g/dL (3.5-5.0); ALBUMIN/GLOBULIN RATIO 0.8 (0.8-2.0); ALKALINE PHOSPHATASE 64 IU/L (40-150); ANION GAP 10.5 mmol/L (8-16); BLOOD UREA NITROGEN 15 mg/dL (7-26); BUN/CREATININE RATIO 18 (6-25); CALCIUM 7.9 mg/dL (8.4-10.2); CARBON DIOXIDE 19 mmol/L (22-29); CHLORIDE 113 mmol/L (98-107); CREATININE, SERUM 0.82 mg/dL (0.72-1.25); EST GLOMERULAR FILTRATION RATE > 60 ML/MIN (60-); GLUCOSE 96 mg/dL (74-118); POTASSIUM 3.5 mmol/L (3.5-5.1); SODIUM 139 mmol/L (136-145)
[2019-12-15] MEDS: PANTOPRAZOLE SOD 40 MG TABEC PO SCH (08:16)
[2019-12-15] MEDS: CLOPIDOGREL BISULFATE 75 MG TAB PO SCH (08:16)
[2019-12-15] MEDS: METOPROLOL TARTRATE 25 MG TAB PO SCH ×2 (08:16→20:45)
[2019-12-15] MEDS: DONEPEZIL HCL 5 MG TAB PO SCH (08:16)
--- NOTE | 2019-12-15 09:05 | NUR ---
post void residual volume 60 ml
[2019-12-15] MEDS ORDERED: POTASSIUM CHLORIDE 20 MEQ TAB CR PO STA (09:43)
[2019-12-15] MEDS ORDERED: FUROSEMIDE INJ 10 MG/ML 4 ML VIAL IV ONE (10:00)
[2019-12-15] MEDS ORDERED: ONDANSETRON HCL 4 MG ORAL DISINTEGRATING TAB PO PRN (12:00)
--- NOTE | 2019-12-15 19:20 | NUR ---
Patient received lying in bed. AAO x 3. Patient had no complaints of pain. Respirations even and non-labored. Safety measures in place. Patient instructed to call for assistance when needed. Call light within reach.
--- NOTE | 2019-12-15 20:35 | Progress Note ---
DATE: SUBJECTIVE: Today the patient feels better. Still had a spiking fever this morning. White count is 12.9, almost normal. BUN and creatinine are normal. He still does not feel well, but he empties his bladder. Since I had a check, he has 63 mL residual. He is voiding clear urine now. No blood grossly seen. Urine culture reveals E. coli, sensitive to cefepime, which he is on right now. Cipro is the medicine of choice to go home and he will go home most likely on Monday on Cipro for 2 weeks. After that I will follow him in the office. RECOMMENDATIONS: Continue IV antibiotics through Monday, go home on Monday on Cipro for 2 weeks and I will follow him in the office. MD AVELINA Tavares/FADYL /[id number]
[2019-12-15] MEDS: ATORVASTATIN 10 MG TAB PO SCH (20:44)
[2019-12-16 01:22] VITALS: BP 144/81
[2019-12-16 05:11] VITALS: BP 154/83
[2019-12-16] MEDS: CEFEPIME 2 GM/NS 0.9% 100 ML 100 ML IV SCH ×2 (05:34→14:00)
[2019-12-16 05:41] LABS: BASOPHILS # (AUTO) 0.1 (0.0-0.1); BASOPHILS % 0.6 % (0.0-1.0); EOSINOPHILS # (AUTO) 0.3 (0.0-0.4); EOSINOPHILS % 2.3 % (0.0-6.0); HEMATOCRIT 38.3 % (38.2-49.6); HEMOGLOBIN 12.6 g/dL (14.0-18.0); LYMPHOCYTES # (AUTO) 0.8 (1.0-3.2); LYMPHOCYTES % 7.6 % (18.0-39.1); MEAN CORPUSCULAR HGB CONC 32.9 g/dL (31-35); MEAN CORPUSCULAR VOLUME 94.1 fL (81-99); MONOCYTES # (AUTO) 0.9 (0.2-0.8); MONOCYTES % 8.7 % (4.4-11.3); NEUTROPHILS # (AUTO) 8.4 (2.1-6.9); NEUTROPHILS % 78.7 % (38.7-80.0); PLATELET COUNT 222 x10e3/uL (140-360); RED BLOOD COUNT 4.07 x10e6/uL (4.3-5.7); RED CELL DISTRIBUTION WIDTH 13.8 % (11.7-14.4)
[2019-12-16 06:01] LABS: ALANINE AMINOTRANSFERASE 25 IU/L (0-55); ALBUMIN 2.5 g/dL (3.5-5.0); ALBUMIN/GLOBULIN RATIO 0.8 (0.8-2.0); ALKALINE PHOSPHATASE 81 IU/L (40-150); ANION GAP 13.4 mmol/L (8-16); BLOOD UREA NITROGEN 17 mg/dL (7-26); BUN/CREATININE RATIO 21 (6-25); CALCIUM 8.3 mg/dL (8.4-10.2); CARBON DIOXIDE 20 mmol/L (22-29); CHLORIDE 110 mmol/L (98-107); CREATININE, SERUM 0.81 mg/dL (0.72-1.25); EST GLOMERULAR FILTRATION RATE > 60 ML/MIN (60-); GLUCOSE 101 mg/dL (74-118); POTASSIUM 3.4 mmol/L (3.5-5.1); SODIUM 140 mmol/L (136-145)
--- NOTE | 2019-12-16 06:50 | NUR ---
Walking rounds done. Patient resting comfortably. Shift report given to oncoming nurse regarding patient status.
--- NOTE | 2019-12-16 07:00 | NUR ---
RCD PT AT BED PT IS ALERT AND ORIENTED PT RESTING ON BED IV PATENT BY SALINE FLUSH BED LOW AND LOCKED CALL LIGHT IN REACH
[2019-12-16 07:53] VITALS: BP 146/86
[2019-12-16 08:32] VITALS: BP 146/86
[2019-12-16] MEDS: PANTOPRAZOLE SOD 40 MG TABEC PO SCH (09:00)
[2019-12-16] MEDS ORDERED: POTASSIUM CHLORIDE 20 MEQ TAB CR PO SCH (09:00)
[2019-12-16] MEDS: CLOPIDOGREL BISULFATE 75 MG TAB PO SCH (09:00)
[2019-12-16] MEDS: DONEPEZIL HCL 5 MG TAB PO SCH (09:00)
[2019-12-16] MEDS: METOPROLOL TARTRATE 25 MG TAB PO SCH (09:07)
[2019-12-16] MEDS ORDERED: CIPRO500 MG PO (11:06)
--- NOTE | 2019-12-16 11:33 | Progress Note ---
DATE: DIAGNOSIS: Urinary tract infection, sepsis. SUBJECTIVE: Today, the patient's vital signs are stable. Has not had any fever for the last 24 hours. His blood count is normal. Urine is clear. He empties his bladder by PVR with ultrasound. He has been tolerating diet and doing well with IV antibiotics. I discussed with Dr. Verma as well as the patient discharge, which occurred today. I have prescribed Cipro 500 mg for two weeks and I will see him in the office in a week in followup and check urine. So, he can go home today. 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 MD AVELINA Tavares/MODL /[id number]
[2019-12-16] MEDS ORDERED: POTASSIUM CHLORIDE 20 MEQ TAB CR PO STA (11:36)
[2019-12-16] MEDS ORDERED: LOPRESSOR25 MG PO (11:38)
[2019-12-16 11:45] VITALS: BP 144/82
[2019-12-16 15:15] VITALS: BP 118/65
--- NOTE | 2019-12-16 16:36 | NUR ---
PATIENT DISCHARGED TO MEDICAL RESORT IN SAFE CONDITION
--- NOTE | 2019-12-17 07:32 | Discharge Summary ---
ADMISSION DIAGNOSES: Urinary tract infection with sepsis, present on admission; acute kidney injury; hypertension, coronary artery disease with PCI; hyperlipidemia; and gastroesophageal reflux disease. DISCHARGE DIAGNOSES: Urinary tract infection with sepsis, present on admission; acute kidney injury; hypertension, coronary artery disease with PCI; hyperlipidemia; and gastroesophageal reflux disease; Escherichia coli urinary tract infection with sepsis, present on admission. HISTORY: Hypertension, CAD, prostate cancer, kidney stones, hyperlipidemia, and GERD. SURGICAL HISTORY: TURP, PCI. FAMILY HISTORY: Noncontributory. SOCIAL HISTORY: Noncontributory. HOSPITAL COURSE: An 79-year-old male admits with complaints of fever of 101, associated left flank pain, and dysuria that began yesterday. He also admits to hematuria, nothing worsens the symptoms. He felt better after given antibiotics in the ER, which was cefepime. The patient has ARMINDA resolved after given IV fluids in the ER. He was hypotensive initially, so blood pressure medicines were held. CT of the abdomen and pelvis showed left renal edema, mild hydroureteronephrosis, and perinephric inflammation. No evidence of obstructing calculus. Circumferential bladder wall thickening is nonspecific. Chest x-ray showed right basilar airspace opacity. Blood cultures were negative. Urine culture came back positive for E coli. The patient will discharge home with prescription for Cipro for 14 days per Urology recommendation. His metoprolol was changed to b.i.d. per Cardiology recommendation. He will follow up with primary care, Urology, and Cardiology in 1 to 2 weeks. The patient understands instructions and agrees to plan. Dictated by Sweta Pinedo NP MD ISAIAS Portillo/MODL /[id number]
== END 2019-12-16 17:00 | disposition home or self-care (01) | DRG 872 ==
LOC: ER 17:56 → ERHOLD 23:27 → IMCU 12-13 19:45 → MED/SURG3 12-14 12:24
PROVIDERS: ADMIT Internal Medicine; ATTEND Internal Medicine
DX: A41.9 Sepsis, unspecified organism (principal); N17.9 Acute kidney failure, unspecified; N10 Acute pyelonephritis; I10 Essential (primary) hypertension; E78.00 Pure hypercholesterolemia, unspecified; C61 Malignant neoplasm of prostate; Z87.891 Personal history of nicotine dependence; Z87.442 Personal history of urinary calculi; E78.5 Hyperlipidemia, unspecified; Z85.46 Personal history of malignant neoplasm of prostate; K21.9 Gastro-esophageal reflux disease without esophagitis; M06.9 Rheumatoid arthritis, unspecified; Z95.5 Presence of coronary angioplasty implant and graft; I73.9 Peripheral vascular disease, unspecified; Z90.49 Acquired absence of other specified parts of digestive tract; I25.118 Atherosclerotic heart disease of native coronary artery with other forms of angina pectoris; K57.90 Diverticulosis of intestine, part unspecified, without perforation or abscess without bleeding; G30.0 Alzheimer's disease with early onset; F02.80 Dementia in other diseases classified elsewhere, unspecified severity, without behavioral disturbance, psychotic disturbance, mood disturbance, and anxiety; Z84.89 Family history of other specified conditions; B96.20 Unspecified Escherichia coli [E. coli] as the cause of diseases classified elsewhere
CPT/HCPCS: 36415; 51798; 71045; 74176; 80053; 80061; 81001; 82270; 82550; 82553; 82948; 83605; 84443; 84484; 85025; 85610; 85730; 87040; 87071; 87086; 87186; 87205; 87635; 93005; 99285; J1940; J7030; J7040